=== PATIENT | female | born 1975 | race Caucasian/White ===

== ENCOUNTER 2017-11-14 21:10 | Observation (INO) | payer BC ==
[2017-11-14] MEDS ORDERED: Ondansetron 4 MG/2 ML SDV IVPUSH ONE ×2 (21:28→22:27)
[2017-11-14] MEDS ORDERED: Sodium Chloride 0.9% 1,000 ML IV SCH (21:30)
[2017-11-14] MEDS ORDERED: HYDROmorphone 0.5 MG/0.5 ML SYRINGE IVPUSH STA (21:30)
[2017-11-14] MEDS ORDERED: HYDROmorphone 0.5 MG/0.5 ML SYRINGE ONE (22:00)
--- NOTE | 2017-11-14 22:20 | EDM.PDOC ---
ED HPI GENERAL MEDICAL PROBLEM - General Chief Complaint: Abdominal Pain Stated Complaint: ABDOMINAL PAIN VOMITING Time Seen by Provider: 11/14/17 21:23 Source of Information: Reports: Patient History Limitations: Reports: No Limitations - History of Present Illness INITIAL COMMENTS - FREE TEXT/NARRATIVE: The patient states that she developed epigastric pain that extended to her central abdomen around noon. The pain did not radiate. She is unable to describe its character. She developed nausea and emesis around 14:30. The emesis gave her temporary relief. Other than emesis, the patient has not identified any modifiers. No recent fever, constipation, diarrhea, or urinary symptoms. No recent chest pain, palpitations, or dyspnea. No prior similar symptoms. The patient did not try any home remedies. The patient is diabetic. Her blood glucose at home was 193, high for her. She last ate around 17:00 today. The patient's PCP is Karma Stoner. lower abdominal Pain Score (Numeric/FACES): 8 - Related Data Allergies Allergy/AdvReac Type Severity Reaction Status Date / Time canagliflozin [From Invokana] Allergy Rash Verified 11/14/17 21:24 omeprazole [From Prilosec] Allergy Rash Verified 11/14/17 21:24 omeprazole magnesium Allergy Rash Verified 11/14/17 21:24 [From Prilosec] Sulfa (Sulfonamide Allergy Rash Verified 11/14/17 21:24 Antibiotics) Home Meds: Home Meds Insulin Glarg,Human.Rec.Analog [LantUS Solostar] 28 units SUBCUT BEDTIME [History] Liraglutide [Victoza] 1.8 mg SUBCUT BEDTIME 02/14/16 [History] Lisinopril 30 mg PO DAILY 02/14/16 [History] glyBURIDE [Glyburide] 10 mg PO DAILY 02/14/16 [History] Cholecalciferol (Vitamin D3) [Vitamin D3] 5,000 unit PO DAILY 11/14/17 [History] Cyanocobalamin (Vitamin B-12) [Vitamin B-12] 500 mcg SL DAILY 11/14/17 [History] Ethinyl Estradiol/Drospirenone [Loryna 3 MG-0.02 MG] 1 each PO DAILY 11/14/17 [ History] Nabumetone [Relafen] 750 mg PO BID 11/14/17 [History] Ubidecarenone [Coq-10] 200 mg PO DAILY 11/14/17 [History] Aspirin 81 mg PO BEDTIME tab.chew 11/15/17 [Rx] Famotidine [Pepcid] 20 mg PO BID #30 tablet 11/15/17 [Rx] Magnesium Oxide 1,200 mg PO DAILY 11/15/17 [History] Ondansetron [Zofran ODT] 4 mg PO Q6H PRN #30 tab.dis 11/15/17 [Rx] Past Medical History HEENT History: Reports: Impaired Vision Cardiovascular History: Reports: Hypertension Genitourinary History: Reports: Renal Calculus Endocrine/Metabolic History: Reports: Diabetes, Type II - Past Surgical History HEENT Surgical History: Reports: Adenoidectomy, Myringotomy w Tube(s), Tonsillectomy GI Surgical History: Reports: Cholecystectomy (2009) Musculoskeletal Surgical History: Reports: Arthroscopic Knee Social & Family History - Family History Family Medical History: Noncontributory - Tobacco Use Smoking Status *Q: Never Smoker Second Hand Smoke Exposure: No - Caffeine Use Caffeine Use: Reports: Soda - Recreational Drug Use Recreational Drug Use: No ED ROS GENERAL - Review of Systems Review Of Systems: ROS reveals no pertinent complaints other than HPI. ED EXAM, GI/ABD - Physical Exam Exam: See Below Exam Limited By: No Limitations General Appearance: Alert, WD/WN, No Apparent Distress Eyes: Bilateral: Normal Appearance, EOMI Ears: Normal External Exam, Hearing Grossly Normal Nose: Normal Inspection, No Blood Throat/Mouth: Normal Inspection, Normal Lips, Normal Voice, No Airway Compromise Head: Atraumatic, Normocephalic Neck: Normal Inspection, Full Range of Motion Respiratory/Chest: No Respiratory Distress, Lungs Clear, Normal Breath Sounds, No Accessory Muscle Use Cardiovascular: Normal Peripheral Pulses, Regular Rate, Rhythm, No Gallop, No JVD, No Murmur, No Rub GI/Abdominal Exam: Normal Bowel Sounds, Soft, No Organomegaly, No Distention, No Abnormal Bruit, No Mass, Pelvis Stable, Tender (Generalized, but more tender in the right upper quadrant than elsewhere. Also tender in the left abdomen and right lower quadrant.), Other (Obese) (Female) Exam: Deferred Rectal (Female) Exam: Deferred Back Exam: Normal Inspection, Full Range of Motion. No: CVA Tenderness (L), CVA Tenderness (R) Extremities: Normal Inspection, Normal Range of Motion, No Pedal Edema, Normal Capillary Refill Neurological: Alert, Oriented, Normal Cognition, No Motor/Sensory Deficits Psychiatric: Normal Affect Skin Exam: Warm, Dry, Intact, Normal Color, No Rash EKG INTERPRETATION EKG Date: 11/15/17 Time: 00:23 Rhythm: Other (Sinus tachycardia) Rate (Beats/Min): 101 [place]: Normal P-Wave: Present QRS: Normal ST-T: Normal QT: Normal Comparison: NA - No Prior EKG Course - Vital Signs Last Recorded V/S: Last Vital Signs Temp 36.8 C 11/15/17 11:01 Pulse 102 H 11/15/17 11:01 Resp 19 11/15/17 11:01 BP 127/70 11/15/17 11:01 Pulse Ox 96 11/15/17 11:01 Orthostatic Blood Pressure [ 137/75 Standing] Orthostatic Blood Pressure [ 134/76 Supine] - Orders/Labs/Meds Orders: Active Orders 24 hr Category Date Time Status Patient Status [ADT] Routine ADT 11/15/17 01:34 Active Labs: Laboratory Tests 11/14/17 11/14/17 11/14/17 Range/Units 22:00 22:00 22:05 WBC 13.53 H (3.98-10.04) K/mm3 RBC 5.22 (3.98-5.22) M/mm3 Hgb 14.8 (11.2-15.7) gm/L Hct 43.3 (34.1-44.9) % MCV 83.0 (79.4-94.8) fl MCH 28.4 (25.6-32.2) pg MCHC 34.2 (32.2-35.5) g/dl RDW Std Deviation 41.1 (36.4-46.3) fL Plt Count 320 (182-369) K/mm3 MPV 9.0 L (9.4-12.3) fl Neutrophils % (Manual) 97 H (40-60) % Band Neutrophils % 0 (0-10) % Lymphocytes % (Manual) 2 L (20-40) % Atypical Lymphs % 0 % Monocytes % (Manual) 1 L (2-10) % Eosinophils % (Manual) 0 L (0.7-5.8) % Basophils % (Manual) 0 L (0.1-1.2) Platelet Estimate Adequate Plt Morphology Comment Normal RBC Morph Comment Normal Puncture Site ABG pH (7.35-7.45) ABG pCO2 (35.0-45.0) mmHg ABG pO2 (80.0-100.0) mmHg ABG HCO3 (22.0-26.0) meq/L ABG O2 Saturation (96.0-97.0) % ABG Base Excess (-2-2.0) Haroon Test O2 Delivery Device FiO2 (21.00-100.00) % Sodium (136-145) mEq/L Potassium (3.5-5.1) mEq/L Chloride (98-107) mEq/L Carbon Dioxide (21-32) mEq/L Anion Gap (5-15) BUN (7-18) mg/dL Creatinine (0.55-1.02) mg/dL Est Cr Clr Drug Dosing mL/min Estimated GFR (MDRD) (>60) mL/min BUN/Creatinine Ratio (14-18) Glucose (74-106) mg/dL Calcium (8.5-10.1) mg/dL Total Bilirubin (0.2-1.0) mg/dL AST (15-37) U/L ALT (14-59) U/L Alkaline Phosphatase (46-116) U/L Total Protein (6.4-8.2) g/dl Albumin (3.4-5.0) g/dl Globulin gm/dL Albumin/Globulin Ratio (1-2) Lipase (73-393) U/L Urine Color Swetha H (Yellow) Urine Appearance Clear (Clear) Urine pH 5.5 (5.0-8.0) Ur Specific Ethan > or = 1.030 (1.005-1.030) Urine Protein Trace H (Negative) Urine Glucose (UA) Negative (Negative) Urine Ketones 3+ H (Negative) Urine Occult Blood Negative (Negative) Urine Nitrite Negative (Negative) Urine Bilirubin 1+ H (Negative) Urine Urobilinogen 0.2 (0.2-1.0) Ur Leukocyte Esterase Negative (Negative) Urine RBC 0-5 (0-5) /hpf Urine WBC 0-5 (0-5) /hpf Ur Epithelial Cells 0-5 (0-5) /hpf Urine Bacteria Rare (FEW) /hpf Hyaline Casts 0-5 (0-5) /lpf Urine Mucus Many H (FEW) /hpf Urine HCG, Qual Negative (NEGATIVE) Ketones (0.0-0.3) mM 11/14/17 11/14/17 11/15/17 Range/Units 22:05 22:05 00:15 WBC (3.98-10.04) K/mm3 RBC (3.98-5.22) M/mm3 Hgb (11.2-15.7) gm/L Hct (34.1-44.9) % MCV (79.4-94.8) fl MCH (25.6-32.2) pg MCHC (32.2-35.5) g/dl RDW Std Deviation (36.4-46.3) fL Plt Count (182-369) K/mm3 MPV (9.4-12.3) fl Neutrophils % (Manual) (40-60) % Band Neutrophils % (0-10) % Lymphocytes % (Manual) (20-40) % Atypical Lymphs % % Monocytes % (Manual) (2-10) % Eosinophils % (Manual) (0.7-5.8) % Basophils % (Manual) (0.1-1.2) Platelet Estimate Plt Morphology Comment RBC Morph Comment Puncture Site Ll ABG pH 7.35 (7.35-7.45) ABG pCO2 34.3 L (35.0-45.0) mmHg ABG pO2 83.0 (80.0-100.0) mmHg ABG HCO3 18.3 L (22.0-26.0) meq/L ABG O2 Saturation 96.8 (96.0-97.0) % ABG Base Excess -6.1 L (-2-2.0) Haroon Test Positive O2 Delivery Device Room air FiO2 0.00 L (21.00-100.00) % Sodium 135 L (136-145) mEq/L Potassium 4.2 (3.5-5.1) mEq/L Chloride 101 (98-107) mEq/L Carbon Dioxide 20 L (21-32) mEq/L Anion Gap 18.2 H (5-15) BUN 17 (7-18) mg/dL Creatinine 0.8 (0.55-1.02) mg/dL Est Cr Clr Drug Dosing 86.63 mL/min Estimated GFR (MDRD) > 60 (>60) mL/min BUN/Creatinine Ratio 21.3 H (14-18) Glucose 198 H (74-106) mg/dL Calcium 8.9 (8.5-10.1) mg/dL Total Bilirubin 0.5 (0.2-1.0) mg/dL AST 29 (15-37) U/L ALT 39 (14-59) U/L Alkaline Phosphatase 68 (46-116) U/L Total Protein 7.3 (6.4-8.2) g/dl Albumin 2.9 L (3.4-5.0) g/dl Globulin 4.4 gm/dL Albumin/Globulin Ratio 0.7 L (1-2) Lipase 178 (73-393) U/L Urine Color (Yellow) Urine Appearance (Clear) Urine pH (5.0-8.0) Ur Specific Ethan (1.005-1.030) Urine Protein (Negative) Urine Glucose (UA) (Negative) Urine Ketones (Negative) Urine Occult Blood (Negative) Urine Nitrite (Negative) Urine Bilirubin (Negative) Urine Urobilinogen (0.2-1.0) Ur Leukocyte Esterase (Negative) Urine RBC (0-5) /hpf Urine WBC (0-5) /hpf Ur Epithelial Cells (0-5) /hpf Urine Bacteria (FEW) /hpf Hyaline Casts (0-5) /lpf Urine Mucus (FEW) /hpf Urine HCG, Qual (NEGATIVE) Ketones 0.76 (0.0-0.3) mM Meds: Medications Discontinued Medications Generic Name Dose Route Start Last Admin Trade Name Dmitriq PRN Reason Stop Dose Admin Aspirin 81 mg 11/15/17 21:00 Aspirin PO BEDTIME SPENCER Famotidine 20 mg 11/15/17 09:45 11/15/17 10:34 Pepcid PO 20 mg BID SPENCER Administration Glipizide 10 mg 11/15/17 07:30 11/15/17 08:11 Glucotrol PO 10 mg ACBREAKFAST SPENCER Administration Hydromorphone HCl 1 mg 11/14/17 21:30 11/14/17 22:12 Dilaudid IVPUSH 11/14/17 21:31 1 mg ONETIME STA Administration Hydromorphone HCl Confirm 11/14/17 22:00 11/14/17 22:10 Dilaudid Administered 11/14/17 22:01 Not Given Dose 0.5 mg .ROUTE .STK-MED ONE Sodium Chloride 1,000 mls @ 150 mls/hr 11/14/17 21:30 11/14/17 23:00 Normal Saline IV 999 mls/hr ASDIRECTED SPENCER Infusion Sodium Chloride 1,000 mls @ 999 mls/hr 11/14/17 23:00 11/15/17 01:26 Normal Saline IV 11/15/17 00:00 Not Given ONETIME ONE Sodium Chloride 1,000 mls @ 250 mls/hr 11/15/17 02:15 11/15/17 06:24 Normal Saline IV 250 mls/hr ASDIRECTED SPENCER Administration Insulin Detemir 14 unit 11/15/17 09:00 11/15/17 08:11 Levemir SUBCUT 14 units BID SPENCER Administration Lisinopril 30 mg 11/15/17 09:00 11/15/17 08:10 Prinivil PO 30 mg DAILY SPENCER Administration Magnesium Oxide 1,200 mg 11/15/17 09:00 11/15/17 08:10 Magnesium Oxide PO 1,200 mg DAILY SPENCER Administration Ondansetron HCl 4 mg 11/14/17 21:28 11/14/17 22:10 Zofran IVPUSH 11/14/17 21:29 4 mg ONETIME ONE Administration Ondansetron HCl 4 mg 11/14/17 22:27 11/14/17 22:31 Zofran IVPUSH 11/14/17 22:28 4 mg ONETIME ONE Administration Ethinyl Estradiol/ 0 each 11/15/17 09:00 11/15/17 08:20 Drospirenone [Loryna PO Not Given 3 Mg-0.02 Mg] DAILY [facility] Victoza (Liraglutide 0 each 11/15/17 21:00 1.8 Mg) SUBCUT BEDTIME SPENCER Pneumococcal Polyvalent Vaccine 0.5 ml 11/15/17 14:30 11/15/17 14:02 Pneumovax 23 IM 11/15/17 14:31 0.5 ml .ONCE ONE Administration Sulindac 200 mg 11/15/17 09:00 11/15/17 08:11 Clinoril PO 200 mg BID SPENCER Administration - Re-Assessments/Exams Free Text/Narrative Re-Assessment/Exam: 11/14/17 22:27 Despite being given 4 mg IV Zofran, the patient vomited after a few sips of oral contrast. I have ordered an additional 4 mg of Zofran. 11/15/17 00:01 CT of the abdomen and pelvis with oral and IV contrast is read by virtual radiology as: No acute findings. Small umbilical hernia containing mesenteric fat (sic) 11/15/17 00:03 The patient's bicarbonate is depressed at 20, with an anion gap elevated at 18.2. Her ketones have returned modestly elevated at 0.76. These findings indicate that the patient is in mild DKA. 11/15/17 00:44 The patient is not orthostatic. The patient's blood gas indicates a compensated metabolic acidosis. 11/15/17 01:01 I am recommending that we place the patient into observation, in order to give IV fluid, and recheck electrolytes in the morning. Case discussed with Dr. Guevara at 00:58. He agrees to place the patient into observation. He asked that I write bridge orders. Departure - Departure Time of Disposition: 01:03 Disposition: Refer to Observation Condition: Fair Clinical Impression: DKA (diabetic ketoacidoses), Abdominal pain of unknown etiology - Discharge Information - My Orders Last 24 Hours: My Active Orders 11/15/17 01:34 Patient Status [ADT] Routine - Assessment/Plan Last 24 Hours: My Active Orders 11/15/17 01:34 Patient Status [ADT] Routine
[2017-11-14] MEDS ORDERED: Sodium Chloride 0.9% 1,000 ML IV ONE (23:00)
[2017-11-15] MEDS: Sodium Chloride 0.9% 1,000 ML IV SCH ×2 (02:25→06:24)
--- NOTE | 2017-11-15 08:45 | CT ---
CT abdomen and pelvis Technique: Multiple axial sections were obtained from above the dome of the diaphragm inferiorly through the pubic symphysis. Intravenous contrast and oral contrast has been given. Comparison: No prior CT exam. Findings: Visualized lung bases show nothing acute. Liver shows mild fatty infiltration without focal abnormality. Small hiatal hernia is noted. Spleen appears within normal limits. Adrenal glands show no nodule. Pancreas is within normal limits. Surgical clips seen from prior cholecystectomy. Kidneys show symmetric contrast enhancement. Low-density lesion is identified within the mid left kidney which has Hounsfield unit measurements of a cyst and measures approximately 1.7 cm. No additional abnormality is seen within the kidneys. Aorta shows minimal atherosclerotic calcification without aneurysm. No retroperitoneal adenopathy or mesenteric abnormalities are seen. No pelvic mass or adenopathy is identified. No bowel dilatation is seen. Appendix is seen which appears normal. No free fluid or inflammatory change is seen. Delayed images through the bladder show contrast within nondilated distal ureters as well as contrast being seen within the bladder. Bone window settings show vacuum phenomena within the L4-L5 and L5-S1 apophyseal joints. Minimal vacuum phenomena seen within several thoracic discs. Small umbilical hernia is seen without inflammatory change. Impression: 1. Incidental findings. Nothing acute is identified on CT study of the abdomen and pelvis. Diagnostic code #2 I agree with preliminary report issued by [employer] ([employer] preliminary report dictated on 11/15/17, 12:52 AM Central Time)
[2017-11-15] MEDS ORDERED: Insulin Detemir 100 Units/ML 3 ML Pen SUBCUT SCH (09:00)
[2017-11-15] MEDS ORDERED: ETHINYL ESTRADIOL PO SCH (09:00)
[2017-11-15] MEDS ORDERED: Lisinopril 10 MG Tab PO SCH (09:00)
[2017-11-15] MEDS ORDERED: Magnesium Oxide 400 MG Tab PO SCH (09:00)
[2017-11-15] MEDS ORDERED: Sulindac 200 MG Tab PO SCH (09:00)
[2017-11-15] MEDS ORDERED: DROSPIRENONE PO SCH (09:00)
--- NOTE | 2017-11-15 09:25 | PCM.HP ---
H&P History of Present Illness - General Date of Service: 11/15/17 Source of Information: Patient, Other (ED records) History Limitations: Reports: No Limitations - History of Present Illness Initial Comments - Free Text/Narative: Carrie is a pleasant 42yo female admitted through ED last night to observation status with hyperglycemia, n/v and abdominal pain. She is type 2 DM for the last 8 years. She tells me that she woke with nausea yesterday morning, progressing to vomiting by the time she got to work. She went home and n/v continued to progress to the point that she could not keep down sips of water. She presented to ED for evaluation. Her blood sugars were "higher than usual but that usually happens when I get sick". She felt chilled and had intermittent sweats. No SOB, CP, palpitations, cough. PMH includes DM as above, HTN. PCP is Karma Stoner PA-C with [facility] Patient is Full Code status. lower abdominal Pain Score (Numeric/FACES): 8 - Related Data Allergies/Adverse Reactions: Allergies Allergy/AdvReac Type Severity Reaction Status Date / Time canagliflozin [From Invokana] Allergy Rash Verified 11/14/17 21:24 omeprazole [From Prilosec] Allergy Rash Verified 11/14/17 21:24 omeprazole magnesium Allergy Rash Verified 11/14/17 21:24 [From Prilosec] Sulfa (Sulfonamide Allergy Rash Verified 11/14/17 21:24 Antibiotics) Home Medications: Home Meds Insulin Glarg,Human.Rec.Analog [LantUS Solostar] 28 units SUBCUT BEDTIME [History] Liraglutide [Victoza] 1.8 mg SUBCUT BEDTIME 02/14/16 [History] Lisinopril 30 mg PO DAILY 02/14/16 [History] glyBURIDE [Glyburide] 10 mg PO DAILY 02/14/16 [History] Cholecalciferol (Vitamin D3) [Vitamin D3] 5,000 unit PO DAILY 11/14/17 [History] Cyanocobalamin (Vitamin B-12) [Vitamin B-12] 500 mcg SL DAILY 11/14/17 [History] Ethinyl Estradiol/Drospirenone [Loryna 3 MG-0.02 MG] 1 each PO DAILY 11/14/17 [ History] Nabumetone [Relafen] 750 mg PO BID 11/14/17 [History] Ubidecarenone [Coq-10] 200 mg PO DAILY 11/14/17 [History] Magnesium Oxide 1,200 mg PO DAILY 11/15/17 [History] Past Medical History HEENT History: Reports: Impaired Vision Cardiovascular History: Reports: Hypertension Respiratory History: Reports: None Gastrointestinal History: Reports: None Genitourinary History: Reports: None CLIENT CARE COORDINATOR History: Reports: None Musculoskeletal History: Reports: None Neurological History: Reports: None Endocrine/Metabolic History: Reports: Diabetes, Type II, IDDM Hematologic History: Reports: None Immunologic History: Reports: None - Infectious Disease History Infectious Disease History: Reports: Chicken Pox, Influenza - Past Surgical History HEENT Surgical History: Reports: Adenoidectomy, Myringotomy w Tube(s), Tonsillectomy GI Surgical History: Reports: Cholecystectomy Musculoskeletal Surgical History: Reports: Arthroscopic Knee Social & Family History - Family History Family Medical History: Noncontributory - Tobacco Use Smoking Status *Q: Never Smoker Second Hand Smoke Exposure: No - Caffeine Use Caffeine Use: Reports: Soda Caffeine Use Comment: Patient states she drinks maybe 2 cans of soda per week - Recreational Drug Use Recreational Drug Use: No H&P Review of Systems - Review of Systems: Review Of Systems: See Below General: Reports: Chills, Weakness, Fatigue, Night Sweats, Diaphoresis, Decreased Appetite HEENT: Reports: No Symptoms Pulmonary: Reports: No Symptoms. Denies: Shortness of Breath, Cough Cardiovascular: Reports: No Symptoms. Denies: Chest Pain, Dyspnea on Exertion Gastrointestinal: Reports: Abdominal Pain, Constipation, Decreased Appetite, Nausea, Vomiting Genitourinary: Reports: No Symptoms Musculoskeletal: Reports: No Symptoms Neurological: Reports: No Symptoms Exam - Exam Exam: See Below - Vital Signs Vital Signs: Last Vital Signs Temp 98.2 F 11/15/17 07:17 Pulse 100 11/15/17 07:17 Resp 20 11/15/17 07:17 BP 128/74 11/15/17 08:10 Pulse Ox 97 11/15/17 07:17 Weight: 232 lb 1.6 oz - Exam Quality Assessment: DVT Prophylaxis General: Alert, Oriented, Cooperative HEENT: Conjunctiva Clear, EOMI, Hearing Intact, Mucosa Moist & Veteran, Pupils Equal, PERRLA Neck: Supple, Trachea Midline Lungs: Clear to Auscultation, Normal Respiratory Effort Cardiovascular: Regular Rate, Regular Rhythm, Normal S1, Normal S2 GI/Abdominal Exam: Normal Bowel Sounds, Soft, Non-Tender. No: Guarding, Rigid, Rebound, Tender (Female) Exam: Deferred Rectal (Female) Exam: Deferred Back Exam: Normal Inspection. No: CVA Tenderness (L), CVA Tenderness (R) Extremities: Normal Inspection, No Pedal Edema, Normal Capillary Refill Peripheral Pulses: 2+: Dorsalis Pedis (L), Dorsalis Pedis (R) Neurological: Cranial Nerves Intact Neuro Extensive - Mental Status: Alert, Oriented x3, Normal Mood/Affect, Normal Cognition, Memory Intact Psychiatric: Alert, Normal Affect, Normal Mood - Patient Data Lab Results Last 24 hrs: Laboratory Results - last 24 hr 11/15/17 11/15/17 11/15/17 Range/Units 02:28 04:30 05:55 WBC (3.98-10.04) K/mm3 RBC (3.98-5.22) M/mm3 Hgb (11.2-15.7) gm/L Hct (34.1-44.9) % MCV (79.4-94.8) fl MCH (25.6-32.2) pg MCHC (32.2-35.5) g/dl RDW Std Deviation (36.4-46.3) fL Plt Count (182-369) K/mm3 MPV (9.4-12.3) fl Neut % (Auto) (34.0-71.1) % Lymph % (Auto) (19.3-51.7) % Carson % (Auto) (4.7-12.5) % Eos % (Auto) (0.7-5.8) Baso % (Auto) (0.1-1.2) % Neut # (Auto) (1.56-6.13) K/mm3 Lymph # (Auto) (1.18-3.74) K/mm3 Carson # (Auto) (0.24-0.36) K/mm3 Eos # (Auto) (0.04-0.36) K/mm3 Baso # (Auto) (0.01-0.08) K/mm3 Manual Slide Review Sodium 136 (136-145) mEq/L Potassium 3.8 (3.5-5.1) mEq/L Chloride 103 (98-107) mEq/L Carbon Dioxide 23 (21-32) mEq/L Anion Gap 13.8 (5-15) BUN 14 (7-18) mg/dL Creatinine 0.7 (0.55-1.02) mg/dL Est Cr Clr Drug Dosing 99.01 mL/min Estimated GFR (MDRD) > 60 (>60) mL/min BUN/Creatinine Ratio 20.0 H (14-18) Glucose 166 H (74-106) mg/dL POC Glucose 217 H 189 H (70-105) mg/dL Calcium 8.2 L (8.5-10.1) mg/dL Magnesium (1.8-2.4) mg/dl 11/15/17 11/15/17 11/15/17 Range/Units 05:55 05:55 06:22 WBC 10.51 H (3.98-10.04) K/mm3 RBC 4.91 (3.98-5.22) M/mm3 Hgb 14.0 (11.2-15.7) gm/L Hct 41.2 (34.1-44.9) % MCV 83.9 (79.4-94.8) fl MCH 28.5 (25.6-32.2) pg MCHC 34.0 (32.2-35.5) g/dl RDW Std Deviation 41.3 (36.4-46.3) fL Plt Count 276 (182-369) K/mm3 MPV 10.0 (9.4-12.3) fl Neut % (Auto) 85.9 H (34.0-71.1) % Lymph % (Auto) 8.4 L (19.3-51.7) % Carson % (Auto) 5.0 (4.7-12.5) % Eos % (Auto) 0.1 L (0.7-5.8) Baso % (Auto) 0.2 (0.1-1.2) % Neut # (Auto) 9.03 H (1.56-6.13) K/mm3 Lymph # (Auto) 0.88 L (1.18-3.74) K/mm3 Carson # (Auto) 0.53 H (0.24-0.36) K/mm3 Eos # (Auto) 0.01 L (0.04-0.36) K/mm3 Baso # (Auto) 0.02 (0.01-0.08) K/mm3 Manual Slide Review Abnormal smear Sodium (136-145) mEq/L Potassium (3.5-5.1) mEq/L Chloride (98-107) mEq/L Carbon Dioxide (21-32) mEq/L Anion Gap (5-15) BUN (7-18) mg/dL Creatinine (0.55-1.02) mg/dL Est Cr Clr Drug Dosing mL/min Estimated GFR (MDRD) (>60) mL/min BUN/Creatinine Ratio (14-18) Glucose (74-106) mg/dL POC Glucose 170 H (70-105) mg/dL Calcium (8.5-10.1) mg/dL Magnesium 1.8 (1.8-2.4) mg/dl 11/15/17 Range/Units 08:08 WBC (3.98-10.04) K/mm3 RBC (3.98-5.22) M/mm3 Hgb (11.2-15.7) gm/L Hct (34.1-44.9) % MCV (79.4-94.8) fl MCH (25.6-32.2) pg MCHC (32.2-35.5) g/dl RDW Std Deviation (36.4-46.3) fL Plt Count (182-369) K/mm3 MPV (9.4-12.3) fl Neut % (Auto) (34.0-71.1) % Lymph % (Auto) (19.3-51.7) % Carson % (Auto) (4.7-12.5) % Eos % (Auto) (0.7-5.8) Baso % (Auto) (0.1-1.2) % Neut # (Auto) (1.56-6.13) K/mm3 Lymph # (Auto) (1.18-3.74) K/mm3 Carson # (Auto) (0.24-0.36) K/mm3 Eos # (Auto) (0.04-0.36) K/mm3 Baso # (Auto) (0.01-0.08) K/mm3 Manual Slide Review Sodium (136-145) mEq/L Potassium (3.5-5.1) mEq/L Chloride (98-107) mEq/L Carbon Dioxide (21-32) mEq/L Anion Gap (5-15) BUN (7-18) mg/dL Creatinine (0.55-1.02) mg/dL Est Cr Clr Drug Dosing mL/min Estimated GFR (MDRD) (>60) mL/min BUN/Creatinine Ratio (14-18) Glucose (74-106) mg/dL POC Glucose 139 H (70-105) mg/dL Calcium (8.5-10.1) mg/dL Magnesium (1.8-2.4) mg/dl Result Diagrams: 11/15/17 05:55 11/15/17 05:55 EKG INTERPRETATION EKG Date: 11/14/17 Rhythm: NSR *Q Meaningful Use (ADM) - VTE *Q VTE Criteria *Q: - Stroke *Q Stroke Criteria *Q: - AMI *Q AMI Criteria *Q: - Problem List (1) Hyperglycemia SNOMED Code(s): 37904384 ICD Code: R73.9 - HYPERGLYCEMIA, UNSPECIFIED Status: Acute Priority: High Current Visit: Yes (2) Abdominal pain of unknown etiology SNOMED Code(s): 745705552 ICD Code: R10.9 - UNSPECIFIED ABDOMINAL PAIN Status: Acute Priority: High Current Visit: Yes (3) Type 2 diabetes mellitus SNOMED Code(s): 51934042 ICD Code: E11.9 - TYPE 2 DIABETES MELLITUS WITHOUT COMPLICATIONS Status: Chronic Priority: High Current Visit: Yes Qualifiers: Diabetes mellitus complication status: with hyperglycemia Diabetes mellitus roasterman insulin use: with penitentiary use Qualified Code(s): E11.65 - Type 2 diabetes mellitus with hyperglycemia; Z79.4 - group home (current) use of insulin; Z79.4 - group home (current) use of insulin; Z79.4 - group home ( current) use of insulin; Z79.4 - group home (current) use of insulin (4) HTN (hypertension) SNOMED Code(s): 88190807 ICD Code: I10 - ESSENTIAL (PRIMARY) HYPERTENSION Status: Chronic Priority : Medium Current Visit: No Qualifiers: Hypertension type: essential hypertension Qualified Code(s): I10 - Essential (primary) hypertension Problem List Initiated/Reviewed/Updated: Yes Orders Last 24hrs: Active Orders 24 hr Category Date Time Status Accu Check [Blood Glucose Check, Bedside] [] Q2HR Care 11/15/17 02:04 Active Ambulate [] QID Care 11/15/17 07:05 Active Up ad Gifty [] BID Care 11/15/17 02:01 Active ADA Diabetic [[place] [employer] Diet] [DIET Diet 11/15/17 Breakfast Active ] Insulin Detemir [Levemir] Med 11/15/17 09:00 Active 14 unit SUBCUT BID Lisinopril [Prinivil] Med 11/15/17 09:00 Active 30 mg PO DAILY Magnesium Oxide Med 11/15/17 09:00 Active 1,200 mg PO DAILY Patient's Own Medication [Ptom] Med 11/15/17 09:00 Active 0 each PO DAILY Patient's Own Medication [Ptom] Med 11/15/17 21:00 Active 0 each SUBCUT BEDTIME Sodium Chloride 0.9% [Normal Saline] 1,000 ml Med 11/15/17 02:15 Active IV ASDIRECTED Sulindac [Clinoril] Med 11/15/17 09:00 Active 200 mg PO BID glipiZIDE [Glucotrol] Med 11/15/17 07:30 Active 10 mg PO ACBREAKFAST Resuscitation Status Routine Resus Stat 11/15/17 02:00 Ordered Medication Orders Glipizide (Glucotrol) 10 mg PO ACBREAKFAST [facility] Last Admin: 11/15/17 08:11 Dose: 10 mg Sodium Chloride (Normal Saline) 1,000 mls @ 250 mls/hr IV ASDIRECTED [facility] Last Admin: 11/15/17 06:24 Dose: 250 mls/hr Infusion: 11/15/17 06:24 Dose: 250 mls/hr Admin: 11/15/17 02:25 Dose: 250 mls/hr Insulin Detemir (Levemir) 14 unit SUBCUT BID [facility] Last Admin: 11/15/17 08:11 Dose: 14 units Lisinopril (Prinivil) 30 mg PO DAILY [facility] Last Admin: 11/15/17 08:10 Dose: 30 mg Magnesium Oxide (Magnesium Oxide) 1,200 mg PO DAILY [facility] Last Admin: 11/15/17 08:10 Dose: 1,200 mg Ethinyl Estradiol/Drospirenone [Loryna 3 Mg-0.02 Mg] 0 each PO DAILY [facility] Last Admin: 11/15/17 08:20 Dose: Victoza (Liraglutide (1.8 Mg)) 0 each SUBCUT BEDTIME [facility] Sulindac (Clinoril) 200 mg PO BID [facility] Last Admin: 11/15/17 08:11 Dose: 200 mg Assessment/Plan Comment:: I/P: Hyperglycemia -IV hydration -Follow labs, AG still open this morning but sugars improved, cont to follow , repeat this afternoon -Risk for DKA with n/v Abdominal pain with nausea and vomiting- acute onset, worsening over past 12 hours [employer] -Negative CT abd/pelvis in ED -Antiemetics -Pain management PRN -IVF as above -Advance diet slowly as tolerated Leukocytosis- -Infectious etiology eval (likely hemoconcentrated due to hyperglycemia)- negative UA, Abd/pelvis CT unremarkable, CXR today, mycoplasma and s.pneumo screening. -Likely contributing is n/v- ? viral gastroenteritis DM -Cont home meds/insulin, accuchecks AC/HS with SSI coverage -A1C -CDE Chronic conditions: DM as above HTN- stable, cont home med Other: GI/DVT prophylax Daily labs CM for DC planning assistance-- likely DC home this afternoon vs tomorrow Follow up with PCP after discharge, Karma Stoner PA-C Full code status.
[2017-11-15] MEDS ORDERED: Famotidine 20 MG Tab PO SCH (09:45)
[2017-11-15 11:30] VITALS: BP 127/70
--- NOTE | 2017-11-15 12:21 | PCM.DCSUM1 ---
Discharge Summary - Hospital Course Free Text/Narrative:: Carrie is a pleasant 42yo female admitted through ED last night to observation status with hyperglycemia, n/v and abdominal pain. She is type 2 DM for the last 8 years. She tells me that she woke with nausea yesterday morning, progressing to vomiting by the time she got to work. She went home and n/v continued to progress to the point that she could not keep down sips of water. She presented to ED for evaluation. Her blood sugars were "higher than usual but that usually happens when I get sick". She felt chilled and had intermittent sweats. No SOB, CP, palpitations, cough. PMH includes DM as above, HTN. PCP is Karma Stoner PA-C with [facility] Patient is Full Code status. - Discharge Data Discharge Date: 11/15/17 (admit date 11/14/17) Discharge Disposition: Home, Self-Care 01 Condition: Good - Discharge Diagnosis/Problem(s) (1) Hyperglycemia SNOMED Code(s): 54946016 ICD Code: R73.9 - HYPERGLYCEMIA, UNSPECIFIED Status: Acute Priority: High Current Visit: Yes (2) Abdominal pain of unknown etiology SNOMED Code(s): 878072266 ICD Code: R10.9 - UNSPECIFIED ABDOMINAL PAIN Status: Acute Priority: High Current Visit: Yes (3) Type 2 diabetes mellitus SNOMED Code(s): 61999242 ICD Code: E11.9 - TYPE 2 DIABETES MELLITUS WITHOUT COMPLICATIONS Status: Chronic Priority: High Current Visit: Yes Qualifiers: Diabetes mellitus complication status: with hyperglycemia 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 insulin use: with fpc use Qualified Code(s): E11.65 - Type 2 diabetes mellitus with hyperglycemia; Z79.4 - adjunct faculty for medical terminology (current) use of insulin; Z79.4 - adjunct faculty for medical terminology (current) use of insulin; Z79.4 - adjunct faculty for medical terminology ( current) use of insulin; Z79.4 - adjunct faculty for medical terminology (current) use of insulin (4) HTN (hypertension) SNOMED Code(s): 49228139 ICD Code: I10 - ESSENTIAL (PRIMARY) HYPERTENSION Status: Chronic Priority : Medium Current Visit: No Qualifiers: Hypertension type: essential hypertension Qualified Code(s): I10 - Essential (primary) hypertension - Patient Summary/Data Operative Procedure(s) Performed: None Complications: None Consults: Consultations 11/15/17 09:32 Consult to Diabetic Nurse Specialist [CONS] Routine Labs Pending at D/C: None Recommended Follow-up Testing/Procedures: Patient DC instructions: Nursing: give PPSV23 vaccine prior to d/c or chart pt refusal. Thank you. Push fluids Recommend taking pepcid twice daily for one week then once daily for one week then can stop. Discuss taking baby aspirin daily with Karma at your follow up visit. Follow up with PCP, Karma Stoner PA-C within one week of discharge. Your A1C was excellent at 6.0. TSH for thyroid function was also normal at 1.33. H.Pylori was negative for bacterial infection in stomach/GI tract. 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 All negative -Likely contributing is n/v- ? viral gastroenteritis DM -Cont home meds/insulin, accuchecks AC/HS with SSI coverage -U5I--iiiretljt at 6.0 -CDE--offered consult to patient, she declines and is doing well with DM management. Will recommend f/up with PCP after discharge for further DM care. Chronic conditions: DM as above HTN- stable, cont home med Other: GI/DVT prophylax Daily labs CM for DC planning assistance-- likely DC home this afternoon vs tomorrow Follow up with PCP after discharge, Karma Stoner PA-C Full code status. - Patient Instructions Diet: Diabetic Diet Activity: As Tolerated Driving: May Drive Today Showering/Bathing: May Shower Notify Provider of: Fever, Increased Pain, Nausea and/or Vomiting - Discharge Plan Prescriptions/Med Rec: Famotidine [Pepcid] 20 mg PO BID #30 tablet Ondansetron [Zofran ODT] 4 mg PO Q6H PRN #30 tab.dis PRN Reason: Nausea Home Medications: Home Meds Insulin Glarg,Human.Rec.Analog [LantUS Solostar] 28 units SUBCUT BEDTIME [History] Liraglutide [Victoza] 1.8 mg SUBCUT BEDTIME 02/14/16 [History] Lisinopril 30 mg PO DAILY 02/14/16 [History] glyBURIDE [Glyburide] 10 mg PO DAILY 02/14/16 [History] Cholecalciferol (Vitamin D3) [Vitamin D3] 5,000 unit PO DAILY 11/14/17 [History] Cyanocobalamin (Vitamin B-12) [Vitamin B-12] 500 mcg SL DAILY 11/14/17 [History] Ethinyl Estradiol/Drospirenone [Loryna 3 MG-0.02 MG] 1 each PO DAILY 11/14/17 [ History] Nabumetone [Relafen] 750 mg PO BID 11/14/17 [History] Ubidecarenone [Coq-10] 200 mg PO DAILY 11/14/17 [History] Aspirin 81 mg PO BEDTIME tab.chew 11/15/17 [Rx] Famotidine [Pepcid] 20 mg PO BID #30 tablet 11/15/17 [Rx] Magnesium Oxide 1,200 mg PO DAILY 11/15/17 [History] Ondansetron [Zofran ODT] 4 mg PO Q6H PRN #30 tab.dis 11/15/17 [Rx] Patient Handouts: Viral Gastroenteritis, Adult, [id number], Diabetes Mellitus and Sick Day Management, Hyperglycemia, [id number] - Discharge Summary/Plan Comment DC Time >30 min.: Yes (40 min) - General Info Date of Service: 11/15/17 Admission Dx/Problem (Free Text: Doing well this morning. No further n/v since admission. Tolerating regular ADA diet now without n/v. Blood sugars have stabilized. Plan DC after lunch today. Functional Status: Reports: Pain Controlled, Tolerating Diet, Ambulating, Urinating, New Symptoms - Review of Systems General: Reports: No Symptoms HEENT: Reports: No Symptoms Pulmonary: Reports: No Symptoms Cardiovascular: Reports: No Symptoms Gastrointestinal: Reports: No Symptoms. Denies: Abdominal Pain, Nausea, Vomiting Genitourinary: Reports: No Symptoms Neurological: Reports: No Symptoms - Patient Data Vitals - Most Recent: Last Vital Signs Temp 98.2 F 11/15/17 11:01 Pulse 102 H 11/15/17 11:01 Resp 19 11/15/17 11:01 BP 127/70 11/15/17 11:01 Pulse Ox 96 11/15/17 11:01 Weight - Most Recent: 232 lb 1.6 oz I&O - Last 24 hours: Intake & Output 11/14/17 11/15/17 11/15/17 22:59 06:59 14:59 Intake Total 714 Balance 714 Lab Results - Last 24 hrs: Laboratory Results - last 24 hr 11/15/17 11/15/17 11/15/17 Range/Units 02:28 04:30 05:55 WBC (3.98-10.04) K/mm3 RBC (3.98-5.22) M/mm3 Hgb (11.2-15.7) gm/L Hct (34.1-44.9) % MCV (79.4-94.8) fl MCH (25.6-32.2) pg MCHC (32.2-35.5) g/dl RDW Std Deviation (36.4-46.3) fL Plt Count (182-369) K/mm3 MPV (9.4-12.3) fl Neut % (Auto) (34.0-71.1) % Lymph % (Auto) (19.3-51.7) % Collier % (Auto) (4.7-12.5) % Eos % (Auto) (0.7-5.8) Baso % (Auto) (0.1-1.2) % Neut # (Auto) (1.56-6.13) K/mm3 Lymph # (Auto) (1.18-3.74) K/mm3 Collier # (Auto) (0.24-0.36) K/mm3 Eos # (Auto) (0.04-0.36) K/mm3 Baso # (Auto) (0.01-0.08) K/mm3 Manual Slide Review Sodium 136 (136-145) mEq/L Potassium 3.8 (3.5-5.1) mEq/L Chloride 103 (98-107) mEq/L Carbon Dioxide 23 (21-32) mEq/L Anion Gap 13.8 (5-15) BUN 14 (7-18) mg/dL Creatinine 0.7 (0.55-1.02) mg/dL Est Cr Clr Drug Dosing 99.01 mL/min Estimated GFR (MDRD) > 60 (>60) mL/min BUN/Creatinine Ratio 20.0 H (14-18) Glucose 166 H (74-106) mg/dL POC Glucose 217 H 189 H (70-105) mg/dL Hemoglobin A1c (4.50-6.20) % Calcium 8.2 L (8.5-10.1) mg/dL Magnesium (1.8-2.4) mg/dl Triglycerides (<150) mg/dL Cholesterol (<200) mg/dL LDL Cholesterol Direct (<100) mg/dL HDL Cholesterol (40-59) mg/dL TSH 3rd Generation (0.358-3.74) uIU/mL Mycoplasma pneumon IgM (NEGATIVE) 11/15/17 11/15/17 11/15/17 Range/Units 05:55 05:55 05:55 WBC 10.51 H (3.98-10.04) K/mm3 RBC 4.91 (3.98-5.22) M/mm3 Hgb 14.0 (11.2-15.7) gm/L Hct 41.2 (34.1-44.9) % MCV 83.9 (79.4-94.8) fl MCH 28.5 (25.6-32.2) pg MCHC 34.0 (32.2-35.5) g/dl RDW Std Deviation 41.3 (36.4-46.3) fL Plt Count 276 (182-369) K/mm3 MPV 10.0 (9.4-12.3) fl Neut % (Auto) 85.9 H (34.0-71.1) % Lymph % (Auto) 8.4 L (19.3-51.7) % Collier % (Auto) 5.0 (4.7-12.5) % Eos % (Auto) 0.1 L (0.7-5.8) Baso % (Auto) 0.2 (0.1-1.2) % Neut # (Auto) 9.03 H (1.56-6.13) K/mm3 Lymph # (Auto) 0.88 L (1.18-3.74) K/mm3 Collier # (Auto) 0.53 H (0.24-0.36) K/mm3 Eos # (Auto) 0.01 L (0.04-0.36) K/mm3 Baso # (Auto) 0.02 (0.01-0.08) K/mm3 Manual Slide Review Abnormal smear Sodium (136-145) mEq/L Potassium (3.5-5.1) mEq/L Chloride (98-107) mEq/L Carbon Dioxide (21-32) mEq/L Anion Gap (5-15) BUN (7-18) mg/dL Creatinine (0.55-1.02) mg/dL Est Cr Clr Drug Dosing mL/min Estimated GFR (MDRD) (>60) mL/min BUN/Creatinine Ratio (14-18) Glucose (74-106) mg/dL POC Glucose (70-105) mg/dL Hemoglobin A1c (4.50-6.20) % Calcium (8.5-10.1) mg/dL Magnesium 1.8 (1.8-2.4) mg/dl Triglycerides 112 (<150) mg/dL Cholesterol 178 (<200) mg/dL LDL Cholesterol Direct 83 (<100) mg/dL HDL Cholesterol 87.0 H (40-59) mg/dL TSH 3rd Generation 1.333 (0.358-3.74) uIU/mL Mycoplasma pneumon IgM Negative (NEGATIVE) 11/15/17 11/15/17 11/15/17 Range/Units 05:55 06:22 08:08 WBC (3.98-10.04) K/mm3 RBC (3.98-5.22) M/mm3 Hgb (11.2-15.7) gm/L Hct (34.1-44.9) % MCV (79.4-94.8) fl MCH (25.6-32.2) pg MCHC (32.2-35.5) g/dl RDW Std Deviation (36.4-46.3) fL Plt Count (182-369) K/mm3 MPV (9.4-12.3) fl Neut % (Auto) (34.0-71.1) % Lymph % (Auto) (19.3-51.7) % Collier % (Auto) (4.7-12.5) % Eos % (Auto) (0.7-5.8) Baso % (Auto) (0.1-1.2) % Neut # (Auto) (1.56-6.13) K/mm3 Lymph # (Auto) (1.18-3.74) K/mm3 Collier # (Auto) (0.24-0.36) K/mm3 Eos # (Auto) (0.04-0.36) K/mm3 Baso # (Auto) (0.01-0.08) K/mm3 Manual Slide Review Sodium (136-145) mEq/L Potassium (3.5-5.1) mEq/L Chloride (98-107) mEq/L Carbon Dioxide (21-32) mEq/L Anion Gap (5-15) BUN (7-18) mg/dL Creatinine (0.55-1.02) mg/dL Est Cr Clr Drug Dosing mL/min Estimated GFR (MDRD) (>60) mL/min BUN/Creatinine Ratio (14-18) Glucose (74-106) mg/dL POC Glucose 170 H 139 H (70-105) mg/dL Hemoglobin A1c 6.00 (4.50-6.20) % Calcium (8.5-10.1) mg/dL Magnesium (1.8-2.4) mg/dl Triglycerides (<150) mg/dL Cholesterol (<200) mg/dL LDL Cholesterol Direct (<100) mg/dL HDL Cholesterol (40-59) mg/dL TSH 3rd Generation (0.358-3.74) uIU/mL Mycoplasma pneumon IgM (NEGATIVE) 11/15/17 11/15/17 Range/Units 10:16 12:03 WBC (3.98-10.04) K/mm3 RBC (3.98-5.22) M/mm3 Hgb (11.2-15.7) gm/L Hct (34.1-44.9) % MCV (79.4-94.8) fl MCH (25.6-32.2) pg MCHC (32.2-35.5) g/dl RDW Std Deviation (36.4-46.3) fL Plt Count (182-369) K/mm3 MPV (9.4-12.3) fl Neut % (Auto) (34.0-71.1) % Lymph % (Auto) (19.3-51.7) % Collier % (Auto) (4.7-12.5) % Eos % (Auto) (0.7-5.8) Baso % (Auto) (0.1-1.2) % Neut # (Auto) (1.56-6.13) K/mm3 Lymph # (Auto) (1.18-3.74) K/mm3 Collier # (Auto) (0.24-0.36) K/mm3 Eos # (Auto) (0.04-0.36) K/mm3 Baso # (Auto) (0.01-0.08) K/mm3 Manual Slide Review Sodium (136-145) mEq/L Potassium (3.5-5.1) mEq/L Chloride (98-107) mEq/L Carbon Dioxide (21-32) mEq/L Anion Gap (5-15) BUN (7-18) mg/dL Creatinine (0.55-1.02) mg/dL Est Cr Clr Drug Dosing mL/min Estimated GFR (MDRD) (>60) mL/min BUN/Creatinine Ratio (14-18) Glucose (74-106) mg/dL POC Glucose 119 H 126 H (70-105) mg/dL Hemoglobin A1c (4.50-6.20) % Calcium (8.5-10.1) mg/dL Magnesium (1.8-2.4) mg/dl Triglycerides (<150) mg/dL Cholesterol (<200) mg/dL LDL Cholesterol Direct (<100) mg/dL HDL Cholesterol (40-59) mg/dL TSH 3rd Generation (0.358-3.74) uIU/mL Mycoplasma pneumon IgM (NEGATIVE) Med Orders - Current: Current Medications Aspirin (Aspirin) 81 mg PO BEDTIME [facility] Famotidine (Pepcid) 20 mg PO BID [facility] Last Admin: 11/15/17 10:34 Dose: 20 mg Glipizide (Glucotrol) 10 mg PO ACBREAKFAST [facility] Last Admin: 11/15/17 08:11 Dose: 10 mg Insulin Detemir (Levemir) 14 unit SUBCUT BID [facility] Last Admin: 11/15/17 08:11 Dose: 14 units Lisinopril (Prinivil) 30 mg PO DAILY [facility] Last Admin: 11/15/17 08:10 Dose: 30 mg Magnesium Oxide (Magnesium Oxide) 1,200 mg PO DAILY [facility] Last Admin: 11/15/17 08:10 Dose: 1,200 mg Ethinyl Estradiol/Drospirenone [Loryna 3 Mg-0.02 Mg] 0 each PO DAILY [facility] Last Admin: 11/15/17 08:20 Dose: Not Given Victoza (Liraglutide (1.8 Mg)) 0 each SUBCUT BEDTIME [facility] Sulindac (Clinoril) 200 mg PO BID [facility] Last Admin: 11/15/17 08:11 Dose: 200 mg Discontinued Medications Hydromorphone HCl (Dilaudid) 1 mg IVPUSH ONETIME STA Stop: 11/14/17 21:31 Last Admin: 11/14/17 22:12 Dose: 1 mg Hydromorphone HCl (Dilaudid) Confirm Administered Dose 0.5 mg .ROUTE .STK-MED ONE Stop: 11/14/17 22:01 Last Admin: 11/14/17 22:10 Dose: Not Given Sodium Chloride (Normal Saline) 1,000 mls @ 150 mls/hr IV ASDIRECTED [facility] Last Infusion: 11/14/17 23:00 Dose: 999 mls/hr Sodium Chloride (Normal Saline) 1,000 mls @ 999 mls/hr IV ONETIME ONE Stop: 11/15/17 00:00 Last Admin: 11/15/17 01:26 Dose: Not Given Sodium Chloride (Normal Saline) 1,000 mls @ 250 mls/hr IV ASDIRECTED [facility] Last Admin: 11/15/17 06:24 Dose: 250 mls/hr Ondansetron HCl (Zofran) 4 mg IVPUSH ONETIME ONE Stop: 11/14/17 21:29 Last Admin: 11/14/17 22:10 Dose: 4 mg Ondansetron HCl (Zofran) 4 mg IVPUSH ONETIME ONE Stop: 11/14/17 22:28 Last Admin: 11/14/17 22:31 Dose: 4 mg - Exam General: Reports: Alert, Oriented, Cooperative, No Acute Distress HEENT: Reports: Pupils Equal, EOMI, Mucous Membr. Moist/[place] Neck: Reports: Supple Lungs: Reports: Clear to Auscultation, Normal Respiratory Effort Cardiovascular: Reports: Regular Rate, Regular Rhythm GI/Abdominal Exam: Normal Bowel Sounds, Soft, Non-Tender (Female) Exam: Deferred Rectal (Female) Exam: Deferred Extremities: Normal Inspection, No Pedal Edema, Normal Capillary Refill Neurological: Reports: No New Focal Deficit Psy/Mental Status: Reports: Alert, Normal Affect, Normal Mood *Q Meaningful Use (DIS) - VTE *Q VTE Criteria *Q: - Stroke *Q Stroke Criteria *Q: - AMI *Q AMI Criteria *Q:
[2017-11-15] MEDS ORDERED: Pneumococcal Polyvalent-23 Vaccine 0.5 ML SDV IM ONE (14:30)
[2017-11-15] MEDS ORDERED: Aspirin 81 MG Tab.Chew PO SCH (21:00)
[2017-11-15] MEDS ORDERED: VICTOZA SUBCUT SCH (21:00)
--- NOTE | 2017-11-16 06:53 | CR ---
Chest: Two views of the chest were obtained. Comparison: No prior chest x-ray. Heart size and mediastinum are normal. Lungs are clear. Bony structures are unremarkable for the patient's age. Surgical clips are noted within the upper abdomen. Small calcification is seen lateral to the humeral head which is felt compatible with slight calcific tendinitis. Impression: 1. Incidental findings. Nothing acute is appreciated on two-view chest x-ray. Diagnostic code #2 MTDD
== END 2017-11-15 14:23 | disposition home or self-care (01) ==
LOC: JD.ED 21:10 → JD.MS 11-15 01:57
PROVIDERS: ADMIT Internal Medicine; ATTEND Internal Medicine
DX: R10.13 Epigastric pain (principal); R11.2 Nausea with vomiting, unspecified; E11.65 Type 2 diabetes mellitus with hyperglycemia; I10 Essential (primary) hypertension; D72.829 Elevated white blood cell count, unspecified; Z79.899 Other long term (current) drug therapy; Z79.4 Long term (current) use of insulin; Z79.82 Long term (current) use of aspirin; Z88.8 Allergy status to other drugs, medicaments and biological substances; Z88.2 Allergy status to sulfonamides; Z90.89 Acquired absence of other organs; Z90.49 Acquired absence of other specified parts of digestive tract
CPT/HCPCS: 36415; 36600; 51703; 71046; 74177; 80048; 80053; 80061; 81001; 81025; 82009; 82803; 82962; 83036; 83690; 83735; 84443; 85025; 86677; 86738; 87899; 90471; 90732; 93005; 96361; 96374; 96375; 99285; A9270; G0009; G0378; J1170; J1815; J2405; J7040; 93010

== ENCOUNTER 2020-11-02 11:41 | Day surgery (SDC) | payer BC, OTHER ==
[~2020-11-02 11:41] MED LIST: Lactated Ringers 1,000 ML IV SCH; Lidocaine 1%/Sod Bicarbonate in NS 8.4% 1 ML Syringe IDERM PRN; Sodium Chloride 0.9% 10 ML Syringe FLUSH PRN
--- NOTE | 2020-11-02 12:00 | PCM.PREANE ---
Preanesthetic Assessment - Procedure Proposed Procedure: EGD and colonoscopy - Anesthesia/Transfusion/Family Hx Anesthesia History: Prior Anesthesia Without Reaction Family History of Anesthesia Reaction: No Transfusion History: No Prior Transfusion(s) - Review of Systems General: Chills (few days ) Pulmonary: No Symptoms Cardiovascular: No Symptoms Gastrointestinal: Vomiting (yesterday after prep) Neurological: No Symptoms Other: Reports: Diabetes, Throat Pain (something stuck in her throat- 4 months) - Physical Assessment NPO Status Date: 11/01/20 NPO Status Time: 05:30 Vital Signs: 97.8 16 100% 99 155/77 Height: 5 ft 6 in Weight: 110 kg ASA Class: 3 Mental Status: Alert & Oriented x3 Airway Class: Mallampati = 1 Dentition: Reports: Normal Dentition Thyro-Mental Finger Breadths: 3 Mouth Opening Finger Breadths: 3 ROM/Head Extension: Full Lungs: Clear to Auscultation, Normal Respiratory Effort Cardiovascular: Regular Rate, Regular Rhythm - Allergies Allergies/Adverse Reactions: Allergies Allergy/AdvReac Type Severity Reaction Status Date / Time canagliflozin [From Invokana] Allergy Rash Verified 10/30/20 12:38 omeprazole [From Prilosec] Allergy Rash Verified 10/30/20 12:38 omeprazole magnesium Allergy Rash Verified 10/30/20 12:38 [From Prilosec] Sulfa (Sulfonamide Allergy Rash Verified 10/30/20 12:38 Antibiotics) - Blood Blood Available: No - Acknowledgements Anesthesia Type Planned: Epidural Pt an Appropriate Candidate for the Planned Anesthesia: Yes Alternatives and Risks of Anesthesia Discussed w Pt/Guardian: Yes Pt/Guardian Understands and Agrees with Anesthesia Plan: Yes PreAnesthesia Questionnaire HEENT History: Reports: Impaired Vision Cardiovascular History: Reports: Hypertension Respiratory History: Reports: None Gastrointestinal History: Reports: None, GERD, Other (See Below) Other Gastrointestinal History: mesenteric panniculitis Genitourinary History: Reports: None, Renal Calculus SALES 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: 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: None Musculoskeletal History: Reports: Arthritis Neurological History: Reports: Other (See Below) Other Neuro History: small fiber neuropathy Psychiatric History: Reports: None Endocrine/Metabolic History: Reports: Diabetes, Type II, Obesity/BMI 30+ Hematologic History: Reports: None Immunologic History: Reports: None Oncologic (Cancer) History: Reports: None Dermatologic History: Reports: Other (See Below) Other Dermatologic History: cold sores - Infectious Disease History Infectious Disease History: Reports: Chicken Pox, Influenza - Past Surgical History Head Surgeries/Procedures: Reports: None HEENT Surgical History: Reports: Adenoidectomy, Myringotomy w Tube(s), Tonsillectomy Cardiovascular Surgical History: Reports: None Respiratory Surgical History: Reports: None GI Surgical History: Reports: Cholecystectomy Female Surgical History: Reports: None Male Surgical History: Reports: None Endocrine Surgical History: Reports: None Neurological Surgical History: Reports: None Musculoskeletal Surgical History: Reports: Arthroscopic Knee Oncologic Surgical History: Reports: None Dermatological Surgical History: Reports: None - SUBSTANCE USE Tobacco Use Status *Q: Never Tobacco User Tobacco Use Within Last Twelve Months: No Second Hand Smoke Exposure: No Days Per Week of Alcohol Use: 0 Recreational Drug Use History: No - HOME MEDS Home Medications: Home Meds Insulin Glarg,Human.Rec.Analog [LantUS Solostar] 36 units SUBCUT BEDTIME 02/14/16 [History] Liraglutide [Victoza] 1.8 mg SUBCUT COLINDRES 02/14/16 [History] Lisinopril 30 mg PO DAILY 02/14/16 [History] glyBURIDE [Glyburide] 10 mg PO DAILY 02/14/16 [History] valACYclovir HCl [valACYclovir] 2 g PO BID 1 Days #2 tablet 04/21/18 [Rx] Famotidine [Pepcid] 20 mg PO DAILY 10/30/20 [History] Lysine 1,000 mg PO DAILY 10/30/20 [History] Meloxicam 15 mg PO DAILY 10/30/20 [History] Pantoprazole Sodium [Protonix] 40 mg PO DAILY 10/30/20 [History] Sucralfate [Carafate] 1 gm PO QID 10/30/20 [History] - CURRENT (IN HOUSE) MEDS Current Meds: Current Medications Lactated Ringer's (Ringers, Lactated) 1,000 mls @ 125 mls/hr IV ASDIRECTED [facility] Stop: 11/02/20 23:00 Lidocaine/Sodium Bicarbonate (Buffered Lidocaine 1% In Ns 8.4%) 0.25 ml IDERM ONETIME PRN PRN Reason: Prior to IV Start Stop: 11/02/20 18:00 Sodium Chloride (Saline Flush) 10 ml FLUSH ASDIRECTED PRN PRN Reason: Keep Vein Open Stop: 11/02/20 18:00
[2020-11-02] MEDS ORDERED: Midazolam 1 MG/ML 2 ML SDV ONE (12:01)
[2020-11-02] MEDS ORDERED: fentaNYL 100 MCG/2 ML SDV ONE (12:01)
[2020-11-02] MEDS ORDERED: Propofol 200 MG/20 ML SDV ONE ×2 (12:01→13:12)
[2020-11-02] MEDS ORDERED: Glycopyrrolate 0.2 MG/ML SDV ONE (13:21)
--- NOTE | 2020-11-02 13:33 | PCM48HPAN ---
Post Anesthesia Note - EVALUATION WITHIN 48HRS OF ANESTHETIC Vital Signs in Normal Range: Yes Patient Participated in Evaluation: Yes Respiratory Function Stable: Yes Airway Patent: Yes Cardiovascular Function Stable: Yes Hydration Status Stable: Yes Pain Control Satisfactory: Yes Nausea and Vomiting Control Satisfactory: Yes Mental Status Recovered: Yes Vital Signs: Last Vital Signs Temp 36.1 C 11/02/20 12:11 Pulse 99 11/02/20 12:11 Resp 16 11/02/20 12:11 BP 155/77 H 11/02/20 12:11 Pulse Ox 100 11/02/20 12:11
[2020-11-02 13:55] VITALS: BP 120/90; PULSE 95
--- NOTE | 2020-11-02 21:25 | PROC ---
DATE OF OPERATION: 11/02/2020 SURGEON: Ann Gonzalez MD PREOPERATIVE DIAGNOSES: 1. Epigastric pain. 2. Hematochezia. 3. Globus sensation 4. GERD POSTOPERATIVE DIAGNOSES: 1. Mild esophagitis. 2. Internal hemorrhoids. 3. Small hiatal hernia. OPERATION PERFORMED: Esophagogastroduodenoscopy and colonoscopy. ANESTHESIA: Monitored anesthesia care. ESTIMATED BLOOD LOSS: Minimal. COMPLICATIONS: None. INDICATIONS AND CONSENT: The patient is a 45-year-old female who has been struggling with epigastric pain, GERD, globus sensation. Initially improved with Carafate and Protonix, but it has recurred. The patient was evaluated in clinic. During the clinic, she also disclosed that she has had some hematochezia. EGD and colonoscopy were recommended. Risks, benefits, and alternatives for the procedure were discussed with the patient and informed consent was obtained. DETAILS OF THE PROCEDURE: The patient was taken to the procedure room, placed in left lateral decubitus position. Monitored anesthesia care was induced. Time out was performed. Then began with an EGD. Scope was inserted into the mouth and taken to the second portion of duodenum. Duodenum was normal. The stomach appeared to be essentially normal. Biopsies were taken in the antrum for H pylori exam. On retroflexion, there was a small hiatal hernia. In the distal esophagus. There was mild esophagitis. This was LA grade A esophagitis. Biopsies were taken in distal esophagus and EG junction for histologic exam. There were no other abnormalities. Air was suctioned out and this part of the procedure was concluded. We turned our attention to the colonoscopy. Perianal exam was significant for grade 2 internal hemorrhoids. The scope was inserted and taken all the way to the cecum. The appendiceal orifice and ileocecal valve were photographed. The prep was good. On withdrawal, the colon was examined entirely. There were no polyps or any other abnormalities. On retroflexion, there were grade 2 hemorrhoids that appeared to be slightly irritated. This may be the source of her hematochezia in the past. At this point, air was suctioned out from the colon and colonoscopy was concluded. The patient will be allowed to return home. The patient should come to clinic in 2 weeks to speak with Veda Barrientos regarding EGD, biopsy results, and plans. MMODAL /[id number] REJI
== END 2020-11-02 14:15 | disposition home or self-care (01) ==
LOC: JD.SDS 11:41
PROVIDERS: ATTEND Surgery
DX: K29.50 Unspecified chronic gastritis without bleeding (principal); K21.00 Gastro-esophageal reflux disease with esophagitis, without bleeding; K64.1 Second degree hemorrhoids; K31.89 Other diseases of stomach and duodenum; K44.9 Diaphragmatic hernia without obstruction or gangrene; I10 Essential (primary) hypertension; K65.4 Sclerosing mesenteritis; E11.40 Type 2 diabetes mellitus with diabetic neuropathy, unspecified; E66.9 Obesity, unspecified; Z90.49 Acquired absence of other specified parts of digestive tract; Z80.0 Family history of malignant neoplasm of digestive organs; Z98.890 Other specified postprocedural states; Z79.899 Other long term (current) drug therapy; Z79.4 Long term (current) use of insulin; Z88.2 Allergy status to sulfonamides; Z88.1 Allergy status to other antibiotic agents; Z88.8 Allergy status to other drugs, medicaments and biological substances; Z68.41 Body mass index [BMI] 40.0-44.9, adult
CPT/HCPCS: 43239; 45378; 81025; 82962; J2250; J2704; J3010; J3490; J7120; 00813

== ENCOUNTER 2021-01-04 07:23 | Observation (INO) | payer BC ==
[~2021-01-04 07:23] MED LIST changes: +Propofol 200 MG/20 ML SDV ONE
[2021-01-04] MEDS ORDERED: fentaNYL 250 MCG/5 ML SDV ONE (07:24)
[2021-01-04] MEDS ORDERED: Midazolam 1 MG/ML 2 ML SDV ONE (07:24)
[2021-01-04] MEDS ORDERED: Rocuronium 50 MG/5 ML Vial ONE (07:24)
[2021-01-04] MEDS ORDERED: Dexamethasone 4 MG/ML 5 ML MDV ONE (07:33)
[2021-01-04] MEDS ORDERED: Ondansetron 4 MG/2 ML SDV ONE (07:33)
[2021-01-04] MEDS ORDERED: Lidocaine 1% with EPINEPHrine 1:100,000 10 ML MDV ONE (07:42)
--- NOTE | 2021-01-04 08:23 | PCM.PREANE ---
Preanesthetic Assessment - Procedure Proposed Procedure: left thyroid lobectomy - Anesthesia/Transfusion/Family Hx Anesthesia History: Prior Anesthesia Without Reaction Family History of Anesthesia Reaction: No Transfusion History: No Prior Transfusion(s) Intubation History: Unknown - Review of Systems General: No Symptoms Pulmonary: No Symptoms, Other (INDIO does not wear a cpap mask ) Cardiovascular: No Symptoms Gastrointestinal: No Symptoms Neurological: No Symptoms Other: Reports: None, Thyroid Problems - Physical Assessment NPO Status Date: 01/03/21 NPO Status Time: 22:30 Height: 1.68 m Weight: 107 kg ASA Class: 3 Mental Status: Alert & Oriented x3 Airway Class: Mallampati = 2 Dentition: Reports: Normal Dentition Thyro-Mental Finger Breadths: 3 Mouth Opening Finger Breadths: 4 ROM/Head Extension: Full Lungs: Clear to Auscultation, Normal Respiratory Effort Cardiovascular: Regular Rate, Regular Rhythm - Lab Values: Laboratory Last Values Urine HCG, Qual Negative (NEGATIVE) 01/04/21 07:42 - Allergies Allergies/Adverse Reactions: Allergies Allergy/AdvReac Type Severity Reaction Status Date / Time amoxicillin [From Augmentin] Allergy Rash Verified 01/01/21 08:26 canagliflozin [From Invokana] Allergy Rash Verified 11/02/20 12:08 clavulanic acid Allergy Rash Verified 01/01/21 08:26 [From Augmentin] empagliflozin Allergy Rash Verified 01/01/21 08:26 [From Jardiance] metformin Allergy Rash Verified 01/01/21 08:26 omeprazole [From Prilosec] Allergy Rash Verified 11/02/20 12:08 omeprazole magnesium Allergy Rash Verified 11/02/20 12:08 [From Prilosec] Sulfa (Sulfonamide Allergy Rash Verified 11/02/20 12:08 Antibiotics) - Blood Blood Available: No - Anesthesia Plan Pre-Op Medication Ordered: None - Acknowledgements Anesthesia Type Planned: General Anesthesia Pt an Appropriate Candidate for the Planned Anesthesia: Yes Alternatives and Risks of Anesthesia Discussed w Pt/Guardian: Yes Pt/Guardian Understands and Agrees with Anesthesia Plan: Yes PreAnesthesia Questionnaire HEENT History: Reports: Impaired Vision Cardiovascular History: Reports: Hypertension Respiratory History: Gastrointestinal History: Reports: None, GERD, Other (See Below) Other Gastrointestinal History: mesenteric panniculitis Genitourinary History: Reports: Renal Calculus 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: 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: 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 Musculoskeletal History: Reports: Arthritis Other Musculoskeletal History: buldged disc Neurological History: Other Neuro History: small fiber neuropathy Psychiatric History: Reports: None Endocrine/Metabolic History: Reports: Diabetes, Type II, Obesity/BMI 30+ Hematologic History: Reports: None Immunologic History: Reports: None Oncologic (Cancer) History: Reports: None Dermatologic History: Reports: Other (See Below) Other Dermatologic History: cold sores - Infectious Disease History Infectious Disease History: Reports: Chicken Pox, Influenza - Past Surgical History Head Surgeries/Procedures: Reports: None HEENT Surgical History: Reports: Adenoidectomy, Myringotomy w Tube(s), Tonsillectomy Cardiovascular Surgical History: Reports: None Respiratory Surgical History: Reports: None GI Surgical History: Reports: Cholecystectomy Female Surgical History: Reports: None Male Surgical History: Endocrine Surgical History: Neurological Surgical History: Musculoskeletal Surgical History: Reports: Arthroscopic Knee Oncologic Surgical History: Reports: None Dermatological Surgical History: Reports: None - SUBSTANCE USE Tobacco Use Status *Q: Never Tobacco User Recreational Drug Use History: No - HOME MEDS Home Medications: Home Meds Insulin Glarg,Human.Rec.Analog [LantUS Solostar] 36 units SUBCUT BEDTIME 02/14/16 [History] Lisinopril 30 mg PO DAILY 02/14/16 [History] glyBURIDE [Glyburide] 10 mg PO DAILY 02/14/16 [History] Famotidine [Pepcid] 20 mg PO DAILY 10/30/20 [History] Lysine 1,000 mg PO DAILY 10/30/20 [History] Meloxicam 15 mg PO DAILY 10/30/20 [History] Dulaglutide [Trulicity] 4.5 mg SQ WEEKLY 01/01/21 [History] valACYclovir HCl [valACYclovir] 2 g PO BID PRN 01/01/21 [History] - CURRENT (IN HOUSE) MEDS Current Meds: Current Medications Lactated Ringer's (Ringers, Lactated) 1,000 mls @ 125 mls/hr IV ASDIRECTED [facility] Stop: 01/04/21 23:00 Clindamycin Phosphate 900 mg/ (Premix) 50 mls @ 100 mls/hr IV ONETIME [facility] Stop: 01/04/21 14:00 Lidocaine/Sodium Bicarbonate (Lidocaine 1%/Sod Bicarbonate In Ns 8.4% 1 Ml Syringe) 0.25 ml IDERM ONETIME PRN PRN Reason: Prior to IV Start Stop: 01/04/21 18:00 Sodium Chloride (Sodium Chloride 0.9% 10 Ml Syringe) 10 ml FLUSH ASDIRECTED PRN PRN Reason: Keep Vein Open Stop: 01/04/21 18:00 Discontinued Medications Bupivacaine HCl/Epinephrine Bitart (Bupivacaine 0.5%/Epinephrine 1:200,000 50 Ml Mdv) Confirm Administered Dose 50 ml .ROUTE .STK-MED ONE Stop: 01/04/21 07:43 Dexamethasone (Dexamethasone 4 Mg/Ml 5 Ml Mdv) Confirm Administered Dose 20 mg .ROUTE .STK-MED ONE Stop: 01/04/21 07:34 Fentanyl (Fentanyl 250 Mcg/5 Ml Sdv) Confirm Administered Dose 250 mcg .ROUTE .STK-MED ONE Stop: 01/04/21 07:25 Lidocaine/Epinephrine (Lidocaine 1% With Epinephrine 1:100,000 10 Ml Mdv) C onfirm Administered Dose 20 ml .ROUTE .STK-MED ONE Stop: 01/04/21 07:43 Midazolam HCl (Midazolam 1 Mg/Ml 2 Ml Sdv) Confirm Administered Dose 2 mg .ROUTE .STK-MED ONE Stop: 01/04/21 07:25 Ondansetron HCl (Ondansetron 4 Mg/2 Ml Sdv) Confirm Administered Dose 4 mg .ROUTE .STK-MED ONE Stop: 01/04/21 07:34 Propofol (Propofol 200 Mg/20 Ml Sdv) Confirm Administered Dose 200 mg .ROUTE .STK-MED ONE Stop: 01/04/21 07:24 Rocuronium [place] (Rocuronium 50 Mg/5 Ml Vial) Confirm Administered Dose 50 mg .ROUTE .STK-MED ONE Stop: 01/04/21 07:25
[2021-01-04] MEDS ORDERED: Scopolamine 1.5 MG Transdermal Patch TRDERM PRN (08:28)
[2021-01-04] MEDS ORDERED: Clindamycin Phosphate in D5W 900 MG in Premix Bag 1 BAG IV SCH ×2 (09:00)
[2021-01-04] MEDS: Bupivacaine 0.5%/EPINEPHrine 1:200,000 50 ML MDV ONE ×2 (11:53→13:30)
[2021-01-04] MEDS ORDERED: diphenhydrAMINE 50 MG/ML SDV IVPUSH PRN (12:29)
[2021-01-04] MEDS ORDERED: Ondansetron 4 MG/2 ML SDV IVPUSH PRN (12:29)
[2021-01-04] MEDS ORDERED: Ketamine 500 mg/10 ML MDV ONE (12:49)
[2021-01-04] MEDS ORDERED: Propofol 200 MG/20 ML SDV ONE (12:51)
[2021-01-04] MEDS ORDERED: Lactated Ringers 1,000 ML ONE ×2 (13:54→14:09)
[2021-01-04] MEDS ORDERED: Acetaminophen 325 MG Tab PO PRN (14:44)
--- NOTE | 2021-01-04 14:44 | PCM.POSTAN ---
POST ANESTHESIA ASSESSMENT - MENTAL STATUS Mental Status: Other (drowsy ) - VITAL SIGNS Vital Signs: 1433 150/100 97 2L 104 15 97.2 Last Vital Signs Temp 36.2 C 01/04/21 07:55 Pulse 105 H 01/04/21 07:55 Resp 20 01/04/21 07:55 BP 160/87 H 01/04/21 07:55 Pulse Ox 100 01/04/21 07:55 - RESPIRATORY Respiratory Status: Respiratory Rate WNL, Airway Patent, O2 Saturation Stable, Supplemental Oxygen - CARDIOVASCULAR CV Status: Pulse Rate WNL, Blood Pressure Stable - GASTROINTESTINAL GI Status: No Symptoms - PAIN Pain Score: 0 - POST OP HYDRATION Hydration Status: Adequate & Stable
--- NOTE | 2021-01-04 16:41 | OR ---
DATE OF OPERATION: 01/04/2021 SURGEON: Ann Gonzalez MD PREOPERATIVE DIAGNOSIS: Suspicious left thyroid nodule. POSTOPERATIVE DIAGNOSIS: Suspicious left thyroid nodule. OPERATION PERFORMED: Left thyroid lobectomy. ANESTHESIA: General endotracheal. ESTIMATED BLOOD LOSS: 15 mL. ASSISTANTS: undertaker assistant: Savanah Contreras MD. Second environmental emergencies assistant: Veda Barrientos CNP. NEED FOR ASSISTANCE: Dr. Contreras assisted the primary surgeon with dissection of the specimen throughout the case. Faith Barrientos assisted with patient preparation, retraction, to expose the target tissue, as well as incision closure at the end of the case. INDICATIONS AND CONSENT: Ms. Jaramillo is a 45-year-old female who has long-standing GERD that was controlled on PPIs, but the patient recently had worsened symptoms along with a feeling of globus sensation. We performed workup including EGD, we did not find a clear source of her increased symptoms. Persistent globus sensation was worked up with neck ultrasound, which revealed a suspicious 2-cm nodule in the left lobe of the thyroid. She underwent FNA cytology which revealed suspicious cells concerning for papillary carcinoma. There was no suspicious lymph nodes in the neck. Due to this diagnosis and suspicion, I discussed with the patient and offered her a left thyroid lobectomy for further evaluation. We discussed both options of lobectomy and total thyroidectomy. We discussed risks, benefits, and alternative, and she understood, questions were answered, and wanted to proceed with a left lobectomy. Informed consent was obtained. DESCRIPTION OF PROCEDURE: The patient was taken to the operating room, placed in supine position. General endotracheal anesthesia was induced. Bilateral arms were tacked. Shoulder roll was placed to extend the neck. OR bed was placed in a [id number] position with neck extended. Then, neck and upper chest were prepped and draped in the usual sterile fashion. A formal time-out was performed prior to the start of the procedure. A 5 cm incision was planned at 2 finger breadth from the sternal notch. This was marked. We began the procedure by infiltrating local anesthetic consisting of 0.5% Marcaine with epinephrine. Then, using a scalpel, incision was made. Using Bovie, dissection was taken down to the platysma muscle which was divided, and then, 2 sub-platismal flaps were made superiorly just to the cricoid cartilage and inferior to the sternal notch. Once this was done, then the strap muscles were at midline exposing the thyroid gland. We began by taking down the upper pole. Meticulous dissection was conducted here to make sure that the external branch of superior laryngeal nerve was preserved. Dissection was performed both with Bovie cautery as well as Harmonic Scalpel. Superior vascular bundle was ligated and divided using a Harmonic scalpel device. Once the superior pole was released, we went down to the inferior pole, which was also released. Care was taken to stay very close to the thyroid gland to avoid injury to the parathyroid as well as the recurrent laryngeal nerve. Laterally, we saw that suspicious nodule. It appeared to be adherent to the sternothyroid muscle, so therefore part of the muscle was taken along with the nodule to ensure that we will have grossly negative margins. Meticulous dissection was carried from lateral to medial, and to avoid injury to the recurrent laryngeal nerve. To do this, we used the bipolar forceps for cautery. Blood vessels, encountered were isolated and divided using Harmonic scalpel except for medial thyroid vein which was clipped and divided. The left recurrent laryngeal nerve was found and clearly visualized anterior to the tracheoesophageal groove. This nerve was preserved. Once this was done, we moved to the inferior and medial aspect of the lobe. Ligament of Dee was identified and divided from the underlying trachea inferiorly and medially. Then the ithmus was divided freeing the left lobe. The medial to lateral dissection was continued using bipolar cautery forceps until the left thyroid lobe was completely freed and removed. The specimen was inspected for any parathyroids, there were none identified. The suspicious nodule was inspected and was firm and measured 2 cm. Specimen was passed off for pathology. The dissection field was inspected, and we identified superior parathyroid tissue. We were unable to identify inferior parathyroid tissue with high degree of certainty. Any bleeding points were cauterized. The left recurrent laryngeal nerve was again identified and appeared intact. Left cricopharyngeus muscle was tested with cautery and appeared to be loi, suggesting intact function of superior laryngeal nerve. A valsalva maneuver was performed and there was no bleeding. The dissection field was irrigated with sterile water and Avitene topical hemostatic was placed into the field for additional hemostasis. Once we were satisfied with our dissection and hemostasis, we closed the wound in layers. The strap muscles were reapproximated with 2-0 Vicryl stitches. The platysma was reapproximated with 3-0 Vicryl stitches in interrupted fashion. The skin was closed in 2 layers. The deeper subdermal layer was closed with 3-0 Vicryl stitches in interrupted fashion and the subcuticular layer was closed with 4-0 Monocryl in a running fashion. Then, Steri-Strips were placed followed by a sterile gauze. This marked the end of the procedure. At the end of the procedure, instruments, sharps, and sponges were counted and found to be correct x2. The patient was awakened and extubated and taken to the PACU for recovery. PLAN: Plan is to observe the patient overnight and discharge the patient tomorrow. The patient to follow up with me in clinic in 2 weeks. MMODAL /[id number] REJI
[2021-01-04] MEDS ORDERED: valACYclovir 1,000 MG Tab PO PRN (20:06)
[2021-01-04] MEDS ORDERED: Non-Formulary Medication 1 Each (Dulaglutide [Trulicity] 4.5 MG/0.5 ML Pen.Injctr) SQ SCH (20:15)
[2021-01-04] MEDS ORDERED: Famotidine 20 MG Tab PO SCH (21:00)
[2021-01-04] MEDS ORDERED: Insulin Glarg,Human.Rec.Analog 100 Unit/ML SUBCUT SCH (21:00)
[2021-01-04] MEDS: fentaNYL 100 MCG/2 ML SDV IVPUSH SCH ×3 (23:10→23:12)
--- NOTE | 2021-01-05 07:26 | PCM.PN ---
- General Info Date of Service: 01/05/21 Admission Dx/Problem (Free Text): Suspicious thyroid nodule Subjective Update: Tolerates diet, doing well. pain is controlled with NSAIDs. Had some numbness on the right first 3 digits which is improving, the rest of fingers feel normal. Functional Status: Reports: Pain Controlled, Tolerating Diet, Ambulating, Urinating - Review of Systems General: Reports: No Symptoms HEENT: Reports: No Symptoms Pulmonary: Reports: No Symptoms Cardiovascular: Reports: No Symptoms Gastrointestinal: Reports: No Symptoms Genitourinary: Reports: No Symptoms Musculoskeletal: Reports: No Symptoms Skin: Reports: No Symptoms Neurological: Reports: No Symptoms - Patient Data Vitals - Most Recent: Last Vital Signs Temp 97.5 F 01/05/21 02:12 Pulse 83 01/05/21 02:12 Resp 16 01/05/21 02:12 BP 133/73 01/05/21 02:12 Pulse Ox 99 01/05/21 02:12 Weight - Most Recent: 108.908 kg I&O - Last 24 Hours: Intake & Output 01/04/21 01/05/21 01/05/21 22:59 06:59 14:59 Intake Total 1305 1200 Output Total 400 Balance 1305 800 Lab Results Last 24 Hours: Laboratory Results - last 24 hr 01/04/21 01/04/21 01/05/21 Range/Units 07:42 14:51 06:21 POC Glucose 140 H 97 (70-99) mg/dL Urine HCG, Qual Negative (NEGATIVE) Med Orders - Current: Current Medications Acetaminophen (Acetaminophen 325 Mg Tab) 650 mg PO Q4H PRN PRN Reason: analgesia/fever Last Admin: 01/04/21 21:05 Dose: 650 mg Documented by: Enoxaparin Sodium (Enoxaparin 30 Mg/0.3 Ml Syringe) 30 mg SUBCUT DAILY [facility] Famotidine (Famotidine 20 Mg Tab) 20 mg PO BEDTIME [facility] Last Admin: 01/04/21 21:05 Dose: 20 mg Documented by: Glipizide (Glipizide 10 Mg Tab) 10 mg PO DAILY [facility] Insulin Glargine (Insulin Glarg,Human.Rec.Analog 100 Unit/Ml) 36 unit SUBCUT BEDTIME [facility] Last Admin: 01/04/21 21:07 Dose: 36 units Documented by: Lisinopril (Lisinopril 10 Mg Tab) 30 mg PO DAILY [facility] Meloxicam (Meloxicam 7.5 Mg Tab) 15 mg PO DAILY [facility] Scopolamine (Scopolamine 1.5 Mg Transdermal Patch) 1.5 mg TRDERM Q72H PRN PRN Reason: Nausea Last Admin: 01/04/21 08:36 Dose: 1.5 mg Documented by: Discontinued Medications Bupivacaine HCl/Epinephrine Bitart (Bupivacaine 0.5%/Epinephrine 1:200,000 50 Ml Mdv) Confirm Administered Dose 50 ml .ROUTE .STK-MED ONE Stop: 01/04/21 07:43 Last Admin: 01/04/21 11:53 Dose: 13 ml Documented by: Dexamethasone (Dexamethasone 4 Mg/Ml 5 Ml Mdv) Confirm Administered Dose 20 mg .ROUTE .STK-MED ONE Stop: 01/04/21 07:34 Diphenhydramine HCl (Diphenhydramine 50 Mg/Ml Sdv) 25 mg IVPUSH Q6H PRN PRN Reason: pruritis Stop: 01/04/21 16:00 Famotidine (Famotidine 20 Mg Tab) 20 mg PO DAILY [facility] Fentanyl (Fentanyl 250 Mcg/5 Ml Sdv) Confirm Administered Dose 250 mcg .ROUTE .STK-MED ONE Stop: 01/04/21 07:25 Fentanyl (Fentanyl 100 Mcg/2 Ml Sdv) 50 mcg IVPUSH Q15M [facility] Stop: 01/04/21 16:00 Last Admin: 01/04/21 23:12 Dose: Not Given Documented by: Lactated Ringer's (Ringers, Lactated) 1,000 mls @ 125 mls/hr IV ASDIRECTED [facility] Stop: 01/04/21 23:00 Last Admin: 01/04/21 08:10 Dose: 125 mls/hr Documented by: Clindamycin Phosphate 900 mg/ (Premix) 50 mls @ 100 mls/hr IV ONETIME [facility] Stop: 01/04/21 14:00 Last Admin: 01/04/21 08:37 Dose: 100 mls/hr Documented by: Lactated Ringer's (Ringers, Lactated) Confirm Administered Dose 1,000 mls @ as directed .ROUTE .STK-MED ONE Stop: 01/04/21 13:55 Lactated Ringer's (Ringers, Lactated) Confirm Administered Dose 1,000 mls @ as directed .ROUTE .STK-MED ONE Stop: 01/04/21 14:10 Ketamine HCl (Ketamine 500 Mg/10 Ml Mdv) Confirm Administered Dose 500 mg .ROUTE .STK-MED ONE Stop: 01/04/21 12:50 Lidocaine/Epinephrine (Lidocaine 1% With Epinephrine 1:100,000 10 Ml Mdv) Confirm Administered Dose 20 ml .ROUTE .STK-MED ONE Stop: 01/04/21 07:43 Lidocaine/Sodium Bicarbonate (Lidocaine 1%/Sod Bicarbonate In Ns 8.4% 1 Ml Syringe) 0.25 ml IDERM ONETIME PRN PRN Reason: Prior to IV Start Stop: 01/04/21 18:00 Last Admin: 01/04/21 08:10 Dose: 0.25 ml Documented by: Midazolam HCl (Midazolam 1 Mg/Ml 2 Ml Sdv) Confirm Administered Dose 2 mg .ROUTE .STK-MED ONE Stop: 01/04/21 07:25 Miscellaneous Medication (Phenylephrine Hcl In 0.9% Nacl 1 Mg/10 Ml Syringe) Confirm Administered Dose 1 mg .ROUTE .[employer]TraceWorks-MED ONE Stop: 01/04/21 13:56 Non-Formulary Medication (Dulaglutide [Trulicity]) 4.5 mg SQ WEEKLY [facility] Non-Formulary Medication (Lysine [Lysine]) 1,000 mg PO DAILY [facility] Ondansetron HCl (Ondansetron 4 Mg/2 Ml Sdv) Confirm Administered Dose 4 mg .ROUTE .[employer]-MED ONE Stop: 01/04/21 07:34 Ondansetron HCl (Ondansetron 4 Mg/2 Ml Sdv) 4 mg IVPUSH ONETIME PRN PRN Reason: Nausea/Vomiting Stop: 01/04/21 16:00 Propofol (Propofol 200 Mg/20 Ml Sdv) Confirm Administered Dose 200 mg .ROUTE .STK-MED ONE Stop: 01/04/21 07:24 Propofol (Propofol 200 Mg/20 Ml Sdv) Confirm Administered Dose 200 mg .ROUTE .[employer]-MED ONE Stop: 01/04/21 12:52 Rocuronium [place] (Rocuronium 50 Mg/5 Ml Vial) Confirm Administered Dose 50 mg .ROUTE .[employer]-MED ONE Stop: 01/04/21 07:25 Sodium Chloride (Sodium Chloride 0.9% 10 Ml Syringe) 10 ml FLUSH ASDIRECTED PRN PRN Reason: Keep Vein Open Stop: 01/04/21 18:00 Valacyclovir HCl (Valacyclovir 1,000 Mg Tab) 2,000 mg PO BID PRN PRN Reason: Other - Exam General: Alert, Oriented, Cooperative Neck: Supple, Other (incision with clean dressing. no bleeding.) GI/Abdominal Exam: Soft, Non-Tender - Patient Data Lab Results Last 24 hrs: Laboratory Results - last 24 hr 01/04/21 01/04/21 01/05/21 Range/Units 07:42 14:51 06:21 POC Glucose 140 H 97 (70-99) mg/dL Urine HCG, Qual Negative (NEGATIVE) Sepsis Event Note - Evaluation Sepsis Screening Result: No Definite Risk - Focused Exam Vital Signs: Vital Signs Temp Pulse Resp BP Pulse Ox 01/05/21 02:12 97.5 F 83 16 133/73 99 01/05/21 00:01 97.7 F 92 16 123/62 92 L 01/04/21 19:32 105 H 140/79 94 L - Problem List Review Problem List Initiated/Reviewed/Updated: No - My Orders Last 24 Hours: My Active Orders 01/04/21 14:44 Patient Status [ADT] Routine Ambulate [RC] BID Up ad Gifty [RC] QSHIFT Vital Signs [RC] Q4HR Acetaminophen [TylenoL] 650 mg PO Q4H PRN DVT/VTE Prophylaxis Reflex [OM.PC] Routine 01/04/21 14:47 Intake and Output [RC] 04,16 01/04/21 14:48 Antiembolic Devices [RC] QSHIFT VTE/DVT Education [RC] DAILY 01/04/21 21:00 Famotidine [Pepcid] 20 mg PO BEDTIME Insulin Glarg,Human.Rec.Analog [LantUS] 36 unit SUBCUT BEDTIME 01/04/21 21:06 Resuscitation Status Routine 01/05/21 06:33 Sequential Compression Device [OM.PC] Routine 01/05/21 07:00 Blood Glucose Check, Bedside [RC] ONETIME Regular Diet [DIET] 01/05/21 09:00 Enoxaparin [Lovenox] 30 mg SUBCUT DAILY Meloxicam [Mobic] 15 mg PO DAILY glipiZIDE [Glucotrol] 10 mg PO DAILY lisinopriL [Prinivil] 30 mg PO DAILY - Assessment Assessment:: PPOD1 s/p partial thyroidectomy. Doing well. - Plan Plan:: - Discharge the patient to home today. She will resume home medications.
--- NOTE | 2021-01-05 07:31 | PCM.DCSUM1 ---
Discharge Summary - Hospital Course Free Text/Narrative:: Patient has a suspicious left thyroid nodule. She underwent left thyroid lobectomy yesterday. Did well. Patient will be discharged today. She will follow up with me in clinic in 2 weeks. Diagnosis: Stroke: No - Discharge Data Discharge Date: 01/05/21 Discharge Disposition: Home, Self-Care 01 Condition: Good - Referral to Home Health Primary Care Physician: Khushi Evans PA-C - Patient Instructions Diet: Heart Healthy Diet Activity: As Tolerated Driving: Do Not Drive (until 24 hrs after anesthesia) Showering/Bathing: Shower in AM Wound/Incision Care: Keep Operative Site/Wound Site Clean and Dry Notify Provider of: Fever, Increased Pain, Swelling and Redness - Discharge Plan *PRESCRIPTION DRUG MONITORING PROGRAM REVIEWED*: Not Applicable *COPY OF PRESCRIPTION DRUG MONITORING REPORT IN PATIENT MARITZA: Not Applicable Home Medications: Home Meds Insulin Glarg,Human.Rec.Analog [LantUS Solostar] 36 units SUBCUT BEDTIME 02/14/16 [History] Lisinopril 30 mg PO DAILY 02/14/16 [History] glyBURIDE [Glyburide] 10 mg PO DAILY 02/14/16 [History] Famotidine [Pepcid] 20 mg PO DAILY 10/30/20 [History] Lysine 1,000 mg PO DAILY 10/30/20 [History] Meloxicam 15 mg PO DAILY 10/30/20 [History] Dulaglutide [Trulicity] 4.5 mg SQ WEEKLY 01/01/21 [History] valACYclovir HCl [valACYclovir] 2 g PO BID PRN 01/01/21 [History] Oxygen Therapy Mode: Room Air - Discharge Summary/Plan Comment DC Time >30 min.: No - General Info Date of Service: 01/05/21 Admission Dx/Problem (Free Text: Suspicious thyroid nodule Subjective Update: Tolerates diet, doing well. pain is controlled with NSAIDs. Had some numbness on the right first 3 digits which is improving, the rest of fingers feel normal. Functional Status: Reports: Pain Controlled, Tolerating Diet, Ambulating, Urinating - Review of Systems General: Reports: No Symptoms HEENT: Reports: No Symptoms Pulmonary: Reports: No Symptoms Cardiovascular: Reports: No Symptoms Gastrointestinal: Reports: No Symptoms Genitourinary: Reports: No Symptoms Musculoskeletal: Reports: No Symptoms Skin: Reports: No Symptoms Neurological: Reports: No Symptoms - Patient Data Vitals - Most Recent: Last Vital Signs Temp 97.5 F 01/05/21 02:12 Pulse 83 01/05/21 02:12 Resp 16 01/05/21 02:12 BP 133/73 01/05/21 02:12 Pulse Ox 99 01/05/21 02:12 Weight - Most Recent: 108.908 kg I&O - Last 24 hours: Intake & Output 01/04/21 01/05/21 01/05/21 22:59 06:59 14:59 Intake Total 1305 1200 Output Total 400 Balance 1305 800 Lab Results - Last 24 hrs: Laboratory Results - last 24 hr 01/04/21 01/04/21 01/05/21 Range/Units 07:42 14:51 06:21 POC Glucose 140 H 97 (70-99) mg/dL Urine HCG, Qual Negative (NEGATIVE) Med Orders - Current: Current Medications Acetaminophen (Acetaminophen 325 Mg Tab) 650 mg PO Q4H PRN PRN Reason: analgesia/fever Last Admin: 01/04/21 21:05 Dose: 650 mg Documented by: Enoxaparin Sodium (Enoxaparin 30 Mg/0.3 Ml Syringe) 30 mg SUBCUT DAILY [facility] Famotidine (Famotidine 20 Mg Tab) 20 mg PO BEDTIME [facility] Last Admin: 01/04/21 21:05 Dose: 20 mg Documented by: Glipizide (Glipizide 10 Mg Tab) 10 mg PO DAILY [facility] Insulin Glargine (Insulin Glarg,Human.Rec.Analog 100 Unit/Ml) 36 unit SUBCUT BEDTIME [facility] Last Admin: 01/04/21 21:07 Dose: 36 units Documented by: Lisinopril (Lisinopril 10 Mg Tab) 30 mg PO DAILY [facility] Meloxicam (Meloxicam 7.5 Mg Tab) 15 mg PO DAILY [facility] Scopolamine (Scopolamine 1.5 Mg Transdermal Patch) 1.5 mg TRDERM Q72H PRN PRN Reason: Nausea Last Admin: 01/04/21 08:36 Dose: 1.5 mg Documented by: Discontinued Medications Bupivacaine HCl/Epinephrine Bitart (Bupivacaine 0.5%/Epinephrine 1:200,000 50 Ml Mdv) Confirm Administered Dose 50 ml .ROUTE .STK-MED ONE Stop: 01/04/21 07:43 Last Admin: 01/04/21 11:53 Dose: 13 ml Documented by: Dexamethasone (Dexamethasone 4 Mg/Ml 5 Ml Mdv) Confirm Administered Dose 20 mg .ROUTE .STK-MED ONE Stop: 01/04/21 07:34 Diphenhydramine HCl (Diphenhydramine 50 Mg/Ml Sdv) 25 mg IVPUSH Q6H PRN PRN Reason: pruritis Stop: 01/04/21 16:00 Famotidine (Famotidine 20 Mg Tab) 20 mg PO DAILY [facility] Fentanyl (Fentanyl 250 Mcg/5 Ml Sdv) Confirm Administered Dose 250 mcg .ROUTE .STK-MED ONE Stop: 01/04/21 07:25 Fentanyl (Fentanyl 100 Mcg/2 Ml Sdv) 50 mcg IVPUSH Q15M [facility] Stop: 01/04/21 16:00 Last Admin: 01/04/21 23:12 Dose: Not Given Documented by: Lactated Ringer's (Ringers, Lactated) 1,000 mls @ 125 mls/hr IV ASDIRECTED [facility] Stop: 01/04/21 23:00 Last Admin: 01/04/21 08:10 Dose: 125 mls/hr Documented by: Clindamycin Phosphate 900 mg/ (Premix) 50 mls @ 100 mls/hr IV ONETIME [facility] Stop: 01/04/21 14:00 Last Admin: 01/04/21 08:37 Dose: 100 mls/hr Documented by: Lactated Ringer's (Ringers, Lactated) Confirm Administered Dose 1,000 mls @ as directed .ROUTE .ST-MED ONE Stop: 01/04/21 13:55 Lactated Ringer's (Ringers, Lactated) Confirm Administered Dose 1,000 mls @ as directed .ROUTE .STK-MED ONE Stop: 01/04/21 14:10 Ketamine HCl (Ketamine 500 Mg/10 Ml Mdv) Confirm Administered Dose 500 mg .ROUTE .STK-MED ONE Stop: 01/04/21 12:50 Lidocaine/Epinephrine (Lidocaine 1% With Epinephrine 1:100,000 10 Ml Mdv) Confirm Administered Dose 20 ml .ROUTE .STK-MED ONE Stop: 01/04/21 07:43 Lidocaine/Sodium Bicarbonate (Lidocaine 1%/Sod Bicarbonate In Ns 8.4% 1 Ml Syringe) 0.25 ml IDERM ONETIME PRN PRN Reason: Prior to IV Start Stop: 01/04/21 18:00 Last Admin: 01/04/21 08:10 Dose: 0.25 ml Documented by: Midazolam HCl (Midazolam 1 Mg/Ml 2 Ml Sdv) Confirm Administered Dose 2 mg .ROUTE .STK-MED ONE Stop: 01/04/21 07:25 Miscellaneous Medication (Phenylephrine Hcl In 0.9% Nacl 1 Mg/10 Ml Syringe) Confirm Administered Dose 1 mg .ROUTE .STK-MED ONE Stop: 01/04/21 13:56 Non-Formulary Medication (Dulaglutide [Trulicity]) 4.5 mg SQ WEEKLY [facility] Non-Formulary Medication (Lysine [Lysine]) 1,000 mg PO DAILY [facility] Ondansetron HCl (Ondansetron 4 Mg/2 Ml Sdv) Confirm Administered Dose 4 mg .ROUTE .STK-MED ONE Stop: 01/04/21 07:34 Ondansetron HCl (Ondansetron 4 Mg/2 Ml Sdv) 4 mg IVPUSH ONETIME PRN PRN Reason: Nausea/Vomiting Stop: 01/04/21 16:00 Propofol (Propofol 200 Mg/20 Ml Sdv) Confirm Administered Dose 200 mg .ROUTE .STK-MED ONE Stop: 01/04/21 07:24 Propofol (Propofol 200 Mg/20 Ml Sdv) Confirm Administered Dose 200 mg .ROUTE .STK-MED ONE Stop: 01/04/21 12:52 Rocuronium [place] (Rocuronium 50 Mg/5 Ml Vial) Confirm Administered Dose 50 mg .ROUTE .STK-MED ONE Stop: 01/04/21 07:25 Sodium Chloride (Sodium Chloride 0.9% 10 Ml Syringe) 10 ml FLUSH ASDIRECTED PRN PRN Reason: Keep Vein Open Stop: 01/04/21 18:00 Valacyclovir HCl (Valacyclovir 1,000 Mg Tab) 2,000 mg PO BID PRN PRN Reason: Other - Exam General: Reports: Alert, Oriented, Cooperative Neck: Reports: Supple, Other (Incision has a clean dressing) Lungs: Reports: Normal Respiratory Effort
[2021-01-05 08:24] VITALS: BP 127/64
[2021-01-05 08:28] VITALS: PULSE 80
[2021-01-05] MEDS ORDERED: Enoxaparin 30 MG/0.3 ML Syringe SUBCUT SCH (09:00)
[2021-01-05] MEDS ORDERED: Lisinopril 10 MG Tab PO SCH (09:00)
[2021-01-05] MEDS ORDERED: Famotidine 20 MG Tab PO SCH (09:00)
[2021-01-05] MEDS ORDERED: Meloxicam 7.5 MG Tab PO SCH (09:00)
[2021-01-05] MEDS ORDERED: Non-Formulary Medication 1 Each (Lysine [Lysine] 1,000 MG Tablet) PO SCH (09:00)
[2021-01-05] MEDS ORDERED: GLYBURIDE 5 MG PO SCH (09:00)
--- NOTE | 2021-01-05 11:25 | PCM48HPAN ---
Post Anesthesia Note - EVALUATION WITHIN 48HRS OF ANESTHETIC Vital Signs in Normal Range: Yes Patient Participated in Evaluation: Yes Respiratory Function Stable: Yes Airway Patent: Yes Cardiovascular Function Stable: Yes Hydration Status Stable: Yes Pain Control Satisfactory: Yes Nausea and Vomiting Control Satisfactory: Yes Mental Status Recovered: Yes Vital Signs: Last Vital Signs Temp 36.4 C 01/05/21 02:12 Pulse 80 01/05/21 08:23 Resp 18 01/05/21 08:23 BP 127/64 01/05/21 08:23 Pulse Ox 98 01/05/21 08:23 - COMMENTS/OBSERVATIONS Free Text/Narrative:: Carrie had numbness to her right hand following surgery. Today the numbness is improving, she still feels her thumb and first 2 fingers are numb at this time. Dr. Gonzalez is aware. Good CMS and movement to her right hand today. She is comfortable continuing to monitor at this time and will follow up if the numbness doesn't resolve.
== END 2021-01-05 10:16 | disposition home or self-care (01) ==
LOC: INTOOBSV 07:23 → JD.MS 07:23
PROVIDERS: ADMIT Surgery; ATTEND Surgery
DX: C73 Malignant neoplasm of thyroid gland (principal); E11.40 Type 2 diabetes mellitus with diabetic neuropathy, unspecified; G47.33 Obstructive sleep apnea (adult) (pediatric); K21.9 Gastro-esophageal reflux disease without esophagitis; E66.9 Obesity, unspecified; I10 Essential (primary) hypertension; Z79.899 Other long term (current) drug therapy; Z98.890 Other specified postprocedural states; Z79.4 Long term (current) use of insulin; Z90.89 Acquired absence of other organs; Z88.1 Allergy status to other antibiotic agents; Z88.2 Allergy status to sulfonamides; Z88.8 Allergy status to other drugs, medicaments and biological substances; Z68.38 Body mass index [BMI] 38.0-38.9, adult
CPT/HCPCS: 60220; 81025; 82947; 88307; A9270; J1100; J1650; J1815; J2250; J2370; J2405; J2704; J3010; J3490; J7120; 00320; 96372; G0378

== ENCOUNTER 2021-10-16 17:00 | Emergency (ER) | payer BC ==
[2021-10-16 17:11] VITALS: BP 173/97; PULSE 128
[2021-10-16] MEDS ORDERED: Ondansetron 4 MG/2 ML SDV IVPUSH ONE (17:42)
[2021-10-16] MEDS ORDERED: Lactated Ringers 1,000 ML IV ONE (17:42)
[2021-10-16] MEDS ORDERED: Acetaminophen 325 MG Tab PO ONE (19:38)
== END 2021-10-16 19:49 | disposition home or self-care (01) ==
LOC: JD.ED 17:00
DX: R11.2 Nausea with vomiting, unspecified (principal); B34.9 Viral infection, unspecified; I10 Essential (primary) hypertension; K21.9 Gastro-esophageal reflux disease without esophagitis; E11.9 Type 2 diabetes mellitus without complications; E66.9 Obesity, unspecified; Z68.38 Body mass index [BMI] 38.0-38.9, adult; Z88.0 Allergy status to penicillin; Z88.8 Allergy status to other drugs, medicaments and biological substances; Z88.2 Allergy status to sulfonamides; Z79.4 Long term (current) use of insulin; Z79.899 Other long term (current) drug therapy; Z20.822 Contact with and (suspected) exposure to COVID-19
CPT/HCPCS: 36415; 80053; 83690; 85025; 87635; 96374; 99284; A9270; J2405; J7120; U0002